=== PATIENT | female | born 1965 | race Caucasian/White ===

== ENCOUNTER 2019-06-24 08:54 | Outpatient (CLI) | payer OTHER, BC, SELFPAY ==
[2019-06-24 09:36] LABS: Alanine Aminotransferase 79 U/L (4-35); Albumin Level 4.4 g/dL (3.5-5.1); Alkaline Phosphatase 68 U/L (38-126); Aspartate Amino Transferase 48 U/L (14-36); Bilirubin,Total 0.5 mg/dL (0.2-1.3); Blood Urea Nitrogen 19 mg/dL (7-17); Calcium 9.7 mg/dL (8.4-10.2); Carbon Dioxide 31 mmol/L (22-30); Chloride 98 mmol/L (98-107); Cholesterol 104 mg/dL (0-200); Estimated Glomerular Filt Rate > 60; Glucose 105 mg/dL (65-105); HDL Direct 32 mg/dL; Potassium 4.1 mmol/L (3.4-5.0); Sodium 141 mmol/L (137-145); Triglycerides 75 mg/dL (<150)
[2019-06-24 09:47] LABS: LDL Cholesterol Direct 62 mg/dL
[2019-06-24 10:00] LABS: Creatinine Urine 90.9 mg/dL
[2019-06-24 10:04] LABS: MALB Creatinine Ratio 22.7 mg/g (0-30); Microalbumin Urine Random 20.6 mg/L (0-16.7)
== END 2019-06-24 08:55 | disposition home or self-care (01) ==
PROVIDERS: PCP Family Medicine; Visit Provider Nurse Practitioner Family
DX: E78.2 Mixed hyperlipidemia (principal); R74.8 Abnormal levels of other serum enzymes; E11.9 Type 2 diabetes mellitus without complications; Z13.29 Encounter for screening for other suspected endocrine disorder
CPT/HCPCS: 36415; 80053; 80061; 82043; 84443

== ENCOUNTER 2019-06-24 14:54 | Outpatient (CLI) | payer OTHER, BC, SELFPAY ==
--- NOTE | 2019-06-24 14:57 | ECG_ITS ---
Measurements Intervals [place] Rate: 69 P: 47 VA: 159 QRS: -36 QRSD: 102 T: 18 QT: 362 QTc: 390 Interpretive Statements SINUS RHYTHM LEFT AXIS DEVIATION CANNOT RULE OUT SEPTAL INFARCT, AGE INDETERMINATE BORDERLINE T WAVE ABNORMALITY- ANTERIOR LEADS BASELINE ARTIFACT- I, II, III, AVR, AVL, AVF ABNORMAL ECG Electronically Signed On 06-24-2019 15:32:34 [employer]CHIT[employer] by Boni Marquez D.O.
== END 2019-06-24 14:55 | disposition home or self-care (01) ==
LOC: ANHSURGERY 14:57
PROVIDERS: PCP Family Medicine; Visit Provider Orthopaedic Surgery
DX: I10 Essential (primary) hypertension (principal); E11.9 Type 2 diabetes mellitus without complications
CPT/HCPCS: 93005

== ENCOUNTER 2019-07-03 02:39 | Day surgery (SDC) | payer OTHER, BC, SELFPAY ==
[2019-06-23 09:23] VITALS: BMI 28.4
[2019-07-03] VITALS (7 sets, daily range): BP systolic 115–147; BP diastolic 67–97; PULSE 61–73; RESP 14–19; TEMP 36.2–36.4; O2SAT 95–100; BMI 27.8
--- NOTE | 2019-07-03 06:28 | WPDANESEPPF ---
Anes - Initial Pre Proc Eval Procedure: Operation Date: 07/03/19 07:30 Proposed Procedures p Left Arthroscopic Partial Medial Meniscectomy - Antonino Williamson MD Date/Time: 07/03/19 06:28 Surgeon: Antonino Williamson MD Pre Op Diagnosis: Left medial meniscus tear Patient Data Age: 54 Gender: F Height: 5 ft 10 in Weight: 90 kg Allergies Allergy/AdvReac Type Severity Reaction Status Date / Time No Known Allergies Allergy Unverified 06/23/19 09:15 Home Medications Medication Instructions Recorded Confirmed Type empagliflozin 5 mg-metformin 1,000 1 tablet PO BID #60 tablet 04/13/19 06/23/19 Rx mg tablet carvedilol 12.5 mg tablet 12.5 mg PO Q12H 04/16/19 06/23/19 History cyclobenzaprine 10 mg tablet 10 mg PO TID 04/16/19 06/23/19 History cyclobenzaprine 5 mg tablet 5 mg PO TID PRN #30 tablet 04/16/19 06/23/19 Rx flash glucose sensor #1 each 04/16/19 06/23/19 History gabapentin 600 mg tablet 600 mg PO DAILY 04/16/19 06/23/19 History hydrochlorothiazide 25 mg tablet 25 mg PO DAILY 04/16/19 06/23/19 History atorvastatin 10 mg tablet 10 mg PO DAILY #90 tablet 05/04/19 06/23/19 Rx omeprazole 40 mg capsule,delayed 40 mg PO DAILY #90 cap 05/04/19 06/23/19 Rx release mmsh-eylhuv-nmjnnora-D3-C-Mn 1 cap PO DAILY 06/23/19 06/23/19 History pxipysjqviya-zkn-bzlf-FA-vit K 1 tablet PO DAILY 06/23/19 06/23/19 History [Adults Multivitamin] omega-3 fatty acids [Fish Oil 1,000 mg PO DAILY 06/23/19 06/23/19 History Concentrate] Patient hx anesthesia problems: none Family hx anesthesia problems: none PMFSH Past Medical History Medical History Cervicalgia Elevated liver enzymes Liver disease Low vitamin D level Mixed hyperlipidemia Tear of medial meniscus of right knee Type 2 diabetes mellitus with hyperglycemia Surgical History Surgical History History of cervical discectomy History of hysterectomy History of tubal ligation History of umbilical hernia repair Family History Family History Grandparent Family history of malignant neoplasm Family history of heart disease in male family member before age 55 Diabetes mellitus Social History Social History Smoking status: Never smoker Alcohol intake: never Anes - Eval Final PreProcedure Day of Procedure 07/03/19 06:28 Patient weight: overweight Heart: regular rate and rhythm Lungs: clear to auscultation Airway: Mallampati scale class II, special considerations poor extension and other (partials) Neurological: alert and oriented Last oral intake: >/= 8 hours ASA classification: III Emergent: no Anesthetic plan: proceed Anesthesia type and monitoring: general LMA and standard monitoring Informed Consent: The patient's anesthetic plan and its attendant risks and benefits were discussed with the patient/family/POA. Questions were solicited and answers provided to the satisfaction of the patient/family/POA.
[2019-07-03] MEDS: LACTATED RINGERS 1,000 ML 30 ML IV CONT (07:00)
[2019-07-03 07:07] LABS: Glucose Point of Care 107 (65-105)
--- NOTE | 2019-07-03 07:18 | PM.HPGS ---
History of Present Illness History of Present Illness Consent: Risks, benefits, and alternatives have been discussed and questions answered. Patient agrees to proceed with procedure. Chief complaint: Left medial meniscus tear Narrative: Hodan Mg is a 54 year old female who complains of persistent medial joint side pain. Worse with activities. Worse with twisting. Feels an intermittent catching sensation. Also pain at night. Minimal benefit from the previous cortisone injection. No significant benefit from physical therapy. Examination Antalgic gait. Mild effusion. Exquisite medial joint line tenderness. Range of motion 0 to 135?. Pain with hyperflexion. Octavia's test positive. No medial or lateral instability. Extensor mechanism intact. Skin without rash or lesion. Calf nontender. Straight leg raise negative. Hip examination benign. [facility] Past Medical History Medical History Cervicalgia Elevated liver enzymes Liver disease Low vitamin D level Mixed hyperlipidemia Tear of medial meniscus of right knee Type 2 diabetes mellitus with hyperglycemia Surgical History Surgical History History of cervical discectomy History of hysterectomy History of tubal ligation History of umbilical hernia repair Family History Family History Grandparent Family history of malignant neoplasm Family history of heart disease in male family member before age 55 Diabetes mellitus Social History Social History Smoking status: Never smoker Alcohol intake: never Meds Home Medications and Allergies Home Medications Medication Instructions Recorded Confirmed Type empagliflozin 5 mg-metformin 1,000 1 tablet PO BID #60 tablet 04/13/19 06/23/19 Rx mg tablet carvedilol 12.5 mg tablet 12.5 mg PO Q12H 04/16/19 06/23/19 History cyclobenzaprine 10 mg tablet 10 mg PO TID 04/16/19 06/23/19 History cyclobenzaprine 5 mg tablet 5 mg PO TID PRN #30 tablet 04/16/19 06/23/19 Rx flash glucose sensor #1 each 04/16/19 06/23/19 History gabapentin 600 mg tablet 600 mg PO DAILY 04/16/19 06/23/19 History hydrochlorothiazide 25 mg tablet 25 mg PO DAILY 04/16/19 06/23/19 History atorvastatin 10 mg tablet 10 mg PO DAILY #90 tablet 05/04/19 06/23/19 Rx omeprazole 40 mg capsule,delayed 40 mg PO DAILY #90 cap 05/04/19 06/23/19 Rx release bjre-soyhen-dqbbmcka-D3-C-Mn 1 cap PO DAILY 06/23/19 06/23/19 History wvwctommdwno-qfm-inix-FA-vit K 1 tablet PO DAILY 06/23/19 06/23/19 History [Adults Multivitamin] omega-3 fatty acids [Fish Oil 1,000 mg PO DAILY 06/23/19 06/23/19 History Concentrate] Allergies Allergy/AdvReac Type Severity Reaction Status Date / Time No Known Allergies Allergy Unverified 06/23/19 09:15 Vital Signs Vital Signs - 24 hr 07/03/19 06:30 Temperature 36.4 C Pulse Rate 62 Respiratory Rate 19 Blood Pressure 135/90 Pulse Oximetry 100 Assessment and Plan Assessment and plan (1) Tear of medial meniscus of right knee: Qualifiers: Tear current or old: current Encounter type: initial encounter Meniscus tear of knee type: complex Qualified Code(s): S83.231A - Complex tear of medial meniscus, current injury, right knee, initial encounter Code(s): S83.241A - Other tear of medial meniscus, current injury, right knee, initial encounter Status: Acute Assessment and Plan: Proceed with arthroscopic partial medial meniscectomy. We discussed the risks, benefits, and alternatives to surgery.
[2019-07-03] MEDS: ceFAZolin 2 GM/D5W 50 ML 2 GM/50 ML BAG IVPB (07:27)
[2019-07-03] MEDS: BUPIVACAINE/EPINEPHRINE 0.5% 30 ML VIAL INFILTRATE (07:45)
[2019-07-03] MEDS: KETOROLAC 30 MG/ML VIAL (*BKC) IV PUSH (07:53)
--- NOTE | 2019-07-03 08:08 | PM.PROC ---
Procedure Note - Detailed Date of procedure: 07/03/19 Pre-op diagnosis: Left medial meniscus tear Left knee medial meniscus tear. Post-op diagnosis: same Procedure performed: Arthroscopic partial medial meniscectomy. Description of procedure: Complex posterior horn tear. 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 Patella grade I and trochlea grade 2. Anesthesia: GETA Surgeon: Antonino Williamson MD Estimated blood loss (mL): 5 Complications: None Condition: stable Disposition: PACU Findings: Brief History: The patient complained of knee pain, swelling and mechanical symptoms despite conservative treatment. MRI confirmed the presence of a meniscus tear. Procedure Details: The patient was identified and the surgical site confirmed and signed in the preoperative holding area. Antibiotics were started per protocol. She was brought to the operative room and transferred to the OR table. A general anesthetic was administered. Supine position with the operative lower extremity position in the leg serrano after placement of a well padded tourniquet. The leg support was lowered and the contralateral limb was supported with a soft bolster. The knee was prepped and draped in the usual sterile fashion. A time-out was performed. The portal sites were marked and infiltrated with 0.5% Marcaine 20 mL. The limb was exsanguinated and the tourniquet inflated to 300 mL Hg. Standard inferolateral and inferomedial portals were established. Inflow was obtained with the saline pump. The camera was introduced. Diagnostic inspection of the joint was accomplished. The meniscus was debrided with the arthroscopic shaver and punches until stable. The arthroscopic instruments were removed. The tourniquet released and wounds closed with subcutaneous 3-0 Monocryl absorbable suture. Steri strips and a sterile dressing were applied. A light elastic wrap was placed. The patient was extubated and brought to the recovery room in stable condition.
[2019-07-03 08:13] LABS: Glucose Point of Care 114 (65-105)
== END 2019-07-03 09:28 | disposition home or self-care (01) ==
PROVIDERS: PCP Family Medicine; Visit Provider Orthopaedic Surgery
PROC: (CPT 29870; principal; 2019-07-03 07:30)
DX: M23.322 Other meniscus derangements, posterior horn of medial meniscus, left knee (principal); M94.262 Chondromalacia, left knee; E11.9 Type 2 diabetes mellitus without complications; E78.2 Mixed hyperlipidemia; E55.9 Vitamin D deficiency, unspecified; K76.9 Liver disease, unspecified; Z79.84 Long term (current) use of oral hypoglycemic drugs
CPT/HCPCS: 29881; A9270; J0690; J1100; J1885; J2250; J2405; J2704; J3010; J7120

== ENCOUNTER 2019-08-27 14:00 | Outpatient (RCR) | payer OTHER, BC, SELFPAY ==
--- NOTE | 2019-07-08 16:16 | PTOPEVAL ---
PHYSICAL THERAPY EVALUATION AND PLAN OF CARE Thank you for referring this patient to [facility]. Shell will participate in physical therapy 2x/week for 4 weeks. Please review, sign, date and return this plan of care ISIAH. I agree with and certify that the following plan of care is medically necessary. Referring Physician Date Attending Provider: Antonino Williamson MD Evaluation Outpatient Past Medical History Neurological History Hx Neurological Disorders No Significant History Cardiovascular History Hx Hypercholesterolemia Yes Hx Hypertension Yes Respiratory History Hx Respiratory Disorders No Significant History Gastrointestinal History Hx Hernia Yes: 2008 UMBILICAL REPAIR Genitourinary History Hx Genitourinary Disorders No Significant History Musculoskeletal History Hx Spinal Surgery Yes: C4-C6 CERVICAL DISCECTOMY AND FUSION Hx Other Musculoskeletal Disorders Yes: LEFT MENISCAL TEAR Hematological History Hx Hematological Disorders No Significant History Endocrine History Hx Diabetes Yes HEENT History Hx HEENT Disorders No Significant History Integumentary History Hx Skin Disorders No Significant History Reproductive History Hx Hysterectomy Yes Hx Tubal Ligation Yes Psychosocial History Hx Psychiatric Disorders No Significant History Pain History Has Past Pain Affected Your Daily Life Yes: NECK PAIN ON OCCASION Anesthesia History Hx Anesthesia Reactions No Significant History Evaluation Information Diagnosis left posterior horn meniscal tear - menisectomy Onset 07/03/2019 Subjective Information Patient is here 6 days s/p Query Text:As Reported By Patient/ left menisectomy of posterior Family horn. She is using crutches as needed. She did go to the grocery store yesterday and there was swelling in the knee that resolved over night. She reports difficulty bending the knee and some pain during full weight bearing. Self Report Pain Assessment Right Knee(s) Reported Pain Level 4 Pain Description Aching,Heavy Pain Frequency Acute,Intermittent Other Pain Description Just does feel right Current Pain Intensity 4 Lowest Pain Intensity 0 Greatest Pain Intensity 6 Pain Aggravating Factors Walking,Weight Bearing/ Standing Interventions Used By Clinicians Exercise,Joint Mobilization Knee Range of Motion Left Knee Flexion Range of Motion - Active 92
--- NOTE | 2019-08-03 07:56 | PCPTNOTE ---
Patient called & cancelled scheduled appointment this date due to no transportation.
--- NOTE | 2019-08-06 09:48 | PTOPEVAL ---
PHYSICAL THERAPY PLAN OF CARE UPDATE AND PROGRESS REPORT Thank you for referring this patient to [facility]. I recommend Hodan continue physical therapy 2x/week for 3-4 weeks to progress quadriceps strengthening and knee flexion. Please review, sign, date and return this plan of care ISIAH. I agree with and certify that the following plan of care is medically necessary. Referring Physician Date Attending Provider: Antonino Williamosn MD Progress Diagnosis left posterior horn meniscal tear - menisectomy Onset 07/03/2019 Subjective Information Knee has been ok. Going Query Text:As Reported By Patient/ down stairs still feels like Family the knee won't hold and ROM continues to be limited. Pain Assessment Timing of Pain Assessment Timing of Pain Assessment Assessment Self Report Self Report Pain Level 0 Pain Score Pain Score 0: Self Report Additional Pain Score Comments no real pain, just that tightness and resistance Lower Extremity Range of Motion Knee Range of Motion Left Knee Flexion Range of Motion - Active 111 Knee Extension Range of Motion - Active 0 Query Text: Lower Extremity Muscle Strength Testing Knee Strength Left Knee Flexion Strength 4+ Good + Knee Extension Strength 3+ Fair + Knee Strength Comments pain at medial joint line to MMT Palpation scar tissue noted under medial incision site; tender to palpation medial joint line Gait Assessment Gait Pattern Antalgic Gait Other Gait Observations very mild antalgia with limited dorsiflexion Stair Climbing Assessment Stair Climbing Assistive Devices Railings Weight Bearing Status - Left As Tolerated Weight Bearing Status - Right Full Maintains Weight Bearing Status Yes Number of Steps Climbed (Steps) 4 Number of Repetitions (Repetitions) 3 Technique Alternating Steps Stair Climbing Direction Both Up and Down Stair Climbing Ability Independent Stair Climbing Comments difficulty descending PT Clinical Summary At this time, Hodan is progressing well with her physical therapy to meet her functional goals. She does continue to demonstrate decreased quadriceps strength that limits functional tasks including squats/sit<>stand and descending stairs. She also presents wi
--- NOTE | 2019-08-27 14:53 | PTOPEVAL ---
PHYSICAL THERAPY DISCHARGE REPORT Thank you for referring Hodan Mg to [facility]. Please review, sign, date and return this plan of care ISIAH. I agree with and certify that the following plan of care is medically necessary. Referring Physician Date Attending Provider: Antonino Williamson MD Discharge Diagnosis left posterior horn meniscal tear - menisectomy Onset 07/03/2019 Subjective Information Reports she is feeling much Query Text:As Reported By Patient/ more confident in her knee. Family She has gone to work for 8 days and every day became a little easier and felt stronger. She negotiated several flights of stairs at work with minimal pain symptoms. Hodan reports she has everything she needs at home to continue exercising. Pain Assessment Timing of Pain Assessment Timing of Pain Assessment Pre-Treatment Self Report Self Report Pain Level 0 Pain Score Pain Score 0: Self Report Lower Extremity Range of Motion Knee Range of Motion Left Knee Flexion Range of Motion - Active 131 Knee Extension Range of Motion - Active 0 Query Text: Lower Extremity Muscle Strength Testing Hip Strength Left Hip Flexion Strength 5 Normal Hip Extension Strength 5 Normal Hip Abduction Strength 5 Normal Knee Strength Left Knee Flexion Strength 5 Normal Knee Extension Strength 5 Normal Knee Strength Comments single leg squat to chair: left = 50%, right = 100% -- presented extensive education regarding importance of quadriceps strength for knee health and preventing tendonitis Gait Pattern No Deviations/Normal Stair Climbing Assessment Stair Climbing Assistive Devices None Weight Bearing Status - Left As Tolerated Weight Bearing Status - Right Full Maintains Weight Bearing Status Yes Number of Steps Climbed (Steps) 4 Number of Repetitions (Repetitions) 3 Technique Alternating Steps Stair Climbing Direction Both Up and Down Stair Climbing Ability Independent PT Clinical Summary Hodan has met her functional goals at this time. She demonstrates WFL strength of Left LE and has an HEP in which she is confident to
== END 2019-08-27 16:10 | disposition home or self-care (01) ==
LOC: ANHPT 14:00
PROVIDERS: PCP Family Medicine; Visit Provider Orthopaedic Surgery
DX: Z48.89 Encounter for other specified surgical aftercare (principal)
CPT/HCPCS: 97014; 97110; 97140; 97161; 97530; G0283

== ENCOUNTER 2019-11-19 15:50 | Outpatient (CLI) | payer OTHER, SELFPAY ==
--- NOTE | ~2019-11-19 | XR_ITS ---
XR knee LT min 4V 11/19/2019 16:28 Indication: Left knee pain Procedure: 4 views left knee Comparison: 04/16/2019 Findings: Mild osteoarthritis of the left knee with marginal osteophytes unchanged. No fracture or tr aumatic malalignment. No significant joint effusion. No radiopaque foreign bodies. Impression: 1: Stable mild tricompartment osteoarthritis of the left knee. Reviewed, dictated and finalized at location A. Impression: 1: Stable mild tricompartment osteoarthritis of the left knee.
== END 2019-11-19 15:51 | disposition home or self-care (01) ==
LOC: ANHIMG 15:58
PROVIDERS: PCP Family Medicine; Visit Provider Orthopaedic Surgery
DX: Z48.89 Encounter for other specified surgical aftercare (principal); M17.12 Unilateral primary osteoarthritis, left knee
CPT/HCPCS: 73564

== ENCOUNTER 2020-02-02 14:25 | Outpatient (CLI) | payer OTHER, SELFPAY ==
[2020-02-02 15:09] LABS: Anion Gap 9 mmol/L (8-16); Blood Urea Nitrogen 19 mg/dL (7-17); Calcium 10.1 mg/dL (8.4-10.2); Carbon Dioxide 29 mmol/L (22-30); Chloride 100 mmol/L (98-107); Cholesterol 110 mg/dL (0-200); Estimated Glomerular Filt Rate 52; Glucose 143 mg/dL (65-105); HDL Direct 33 mg/dL; Potassium 4.1 mmol/L (3.4-5.0); Sodium 138 mmol/L (137-145); Triglycerides 221 mg/dL (<150)
[2020-02-02 15:20] LABS: LDL Cholesterol Direct 54 mg/dL
[2020-02-02 16:53] LABS: Creatinine Urine 79.4 mg/dL
[2020-02-02 17:13] LABS: MALB Creatinine Ratio < 7.6 mg/g (0-30); Microalbumin Urine Random < 6.0 mg/L (0-16.7)
== END 2020-02-02 14:26 | disposition home or self-care (01) ==
LOC: ANHLAB 14:28
PROVIDERS: PCP Family Medicine; Visit Provider Nurse Practitioner Family
DX: E11.9 Type 2 diabetes mellitus without complications (principal)
CPT/HCPCS: 36415; 80048; 80061; 82043; 84443

== ENCOUNTER 2020-06-03 14:24 | Outpatient (CLI) | payer OTHER, SELFPAY ==
--- NOTE | ~2020-06-03 | XR_ITS ---
EXAMINATION: XR chest 2V DATE: 06/03/2020 14:40 INDICATION: Cough. TECHNIQUE: Frontal and lateral views of the chest were obtained. COMPARISON: Chest 2 views 11/22/2015 FINDINGS: The chest demonstrates clear lungs without pneumonia, pleural effusion, or pneumothorax. Th e heart size is normal. There are changes of anterior fusion procedure in cervical spine. IMPRESSION: 1. No acute cardiopulmonary disease. Reviewed, dictated and finalized at location B. [employer] WORK[employer]
== END 2020-06-03 14:25 | disposition home or self-care (01) ==
PROVIDERS: Family Provider Family Medicine; PCP Family Medicine; Visit Provider Nurse Practitioner Family
DX: R05 Cough (principal)
CPT/HCPCS: 71046

== ENCOUNTER 2020-12-05 14:55 | Emergency (ER) | payer OTHER, SELFPAY ==
--- NOTE | ~2020-12-05 | XR_ITS ---
XR knee RT min 4V 12/05/2020 15:31 Indication: Right knee pain Procedure: 4 views right knee Comparison: 04/16/2019 Findings: No fracture, subluxation or dislocation. No significant joint effusion. There is mild osteo arthritis. No foreign bodies. No focal soft tissue abnormality. Impression: 1: No acute fracture. Reviewed, dictated and finalized at location A. Impression: 1: No acute fracture.
[2020-12-05 15:10] VITALS: BP 130/71; PULSE 78; RESP 18; TEMP 37.6; O2SAT 97
--- NOTE | 2020-12-05 15:13 | ED.LOWEXIN ---
HPI - Extremity Injury (Lower) General Chief Complaint: Extremity Injury, Lower Stated Complaint: Right Knee Pain Time Seen by Provider: 12/05/20 15:13 Source: patient and RN notes reviewed Mode of arrival: ambulatory Limitations: no limitations History of Present Illness HPI Narrative: 55-year-old female presents to the [facility] with right knee pain since yesterday. Patient reports that she dropped a box on her knee a day prior to arrival. Has been using ice and ibuprofen with minimal relief. Patient reports that she has been walking at work and the pain gets worse. Related Data Home Medications Medication Instructions Recorded Confirmed Adults Multivitamin 1 tablet PO DAILY 06/23/19 12/06/20 Allergies Allergy/AdvReac Type Severity Reaction Status Date / Time No Known Allergies Allergy Verified 12/05/20 15:17 Review of Systems Review of Systems: All systems reviewed & are unremarkable except as noted in HPI and below Constitutional: Constitutional: Reports no additional constitutional complaints Eyes: Eyes: Reports no additional eye complaints ENT: Reports system reviewed and no additional complaints, except as documented Cardiovascular: Cardiovascular: Reports no additional cardiovascular complaints and Denies chest pain Respiratory: Respiratory: Reports no additional respiratory complaints Musculoskeletal: Musculoskeletal: Reports as per HPI and Reports arthralgias (Right knee) Integumentary/Breasts: Skin/Breast: Reports system reviewed and no additional complaints, except as docu and Denies rash Neurologic: Reports system reviewed and no additional complaints, except as documented, Denies dizziness, Denies headache(s), Denies focal weakness, Denies numbness and Denies weakness Psychiatric: Psychiatric: Reports no additional psychiatric complaints Allergic/Immunologic: Allergic/Immunologic: Reports no additional allergic/immunologic complaints [facility] Past Medical History Medical History BMI 27.0-27.9,adult Cervicalgia Elevated liver enzymes Liver disease Low vitamin D level Mixed hyperlipidemia Tear of medial meniscus of right knee Type 2 diabetes mellitus with hyperglycemia Surgical History Surgical History History of cervical discectomy History of hysterectomy History of tubal ligation History of umbilical hernia repair Family History Family History Grandparent Family history of malignant neoplasm Family history of heart disease in male family member before age 55 Diabetes mellitus Father No problems noted. Mother Heart disease Diabetes mellitus COVID-19 Sibling No problems noted. Social History Social History Smoking status: Never smoker Alcohol intake: current Substance use: never Substance use type: does not use Additional occupation/education comments: PT Gender identity (if verbalized by the patient): Female Comments At the time of my signature, I reviewed and agree with the nursing past medical, surgical, social, and family history. There is no relevant family history pertinent to the patient complaint. Exam Const: General: healthy appearing, no acute distress and alert Nutritional Appearance: well nourished Orientation/consciousness: patient oriented x3 Limitations: no limitations HENMT: Head: normal to inspection Neck: Neck: normal visual inspection Chest: Chest palpation & inspection: normal inspection of the chest Resp: Effort & Inspection: normal respiratory effort Auscultation: clear to auscultation bilaterally Cardio: Rate: regular rate Rhythm: regular rhythm Back/Spine/Pelvis: Back: no CVA tenderness Skin: General skin exam: normal color Rashes: no rashes Wounds: no wounds Neur
== END 2020-12-05 15:52 | disposition home or self-care (01) ==
PROVIDERS: Emergency Provider Nurse Practitioner; PCP Family Medicine
DX: S83.91XA Sprain of unspecified site of right knee, initial encounter (principal); W20.8XXA Other cause of strike by thrown, projected or falling object, initial encounter; E78.2 Mixed hyperlipidemia; E11.9 Type 2 diabetes mellitus without complications; K76.9 Liver disease, unspecified
CPT/HCPCS: 73564; 99213; G0463

== ENCOUNTER → 2020-12-14 07:51 | Outpatient (CLI) | payer OTHER, SELFPAY ==
--- NOTE | ~2020-12-14 | MR_ITS ---
EXAMINATION: MR knee RT wo con DATE: 12/14/2020 08:43 INDICATION: Generalized right knee pain, swelling, limited range of motion and weakness post twisting injury one week prior. TECHNIQUE: Magnetic resonance imaging (MRI) of the right knee was performed without intravenous contr ast. Sequences included coronal PD-weighted FSE, coronal PD-weighted FS FSE, sagittal T2-weighted FS E, sagittal PD-weighted FS FSE and axial PD weighted fat saturated FSE. COMPARISON: None. FINDINGS: Medial compartment: Medial meniscus is normal. Shallow chondral fissuring involving less than 50% the cartilage thickness along the anterior weightbearing medial femoral condyle. Remaining cartilage appears normal. Lateral compartment: Lateral meniscus is normal. Deeper chondral fissuring along the anterior weightbearing lateral femora l condyle with small region of subtle underlying cortical irregularity but without subcortical edema. Remaining cartilage appears normal. Patellofemoral compartment: Deep chondral ulceration at the trochlea centered about the inferior half of the trochlear groove wit h underlying small subchondral osteophytes. Diffuse partial thickness cartilage loss the patella with regions of deep or full/near full-thickness chondral ulceration and associated underlying mild subar ticular cystic change at the cephalad aspects of the medial and lateral patellar facets. Ligaments and tendons: At least partial tear of the posterolateral bundle of the anterior cruciate ligament. The anteromedia l bundle remains normal.. The posterior cruciate ligament is normal. The medial collateral ligament a nd fibular collateral ligament complex are normal. Proximal patellar tendinopathy. The quadriceps ten don is normal. The visualized medial and lateral hamstring tendons as well as the iliotibial band are normal. Fluid: Moderate-sized right knee joint effusion. No loose osteochondral bodies identified. Small Oliveira's cys t with trace amount of fluid. Osseous/other: Small bone islands in the distal femur. No fracture or pathologic marrow replacing process. IMPRESSION: 1. At least partial tear of the posterolateral bundle of the anterior cruciate ligament with intact a nteromedial bundle. 2. Mild tricompartmental osteoarthritis with regions of high-grade chondromalacia most prominent in t he patellofemoral compartment with smaller regions of moderate to high-grade chondromalacia along the weightbearing medial lateral femoral condyles. 3. Moderate-sized right knee joint effusion. Reviewed, dictated and finalized at location A. IMPRESSION: 1. At least partial tear of the posterolateral bundle of the anterior cruciate ligament with intact anteromedial bundle. 2. Mild tricompartmental osteoarthritis with regions of high-grade chondromalac ia most prominent in the patellofemoral compartment with smaller regions of mod erate to high-grade chondromalacia along the weightbearing medial lateral femor al condyles. 3. Moderate-sized right knee joint effusion.
== END ==
PROVIDERS: PCP Family Medicine; Visit Provider Nurse Practitioner Family
DX: S89.91XA Unspecified injury of right lower leg, initial encounter (principal); M17.11 Unilateral primary osteoarthritis, right knee; M22.41 Chondromalacia patellae, right knee; M25.461 Effusion, right knee
CPT/HCPCS: 73721

== ENCOUNTER 2021-02-23 07:30 | Outpatient (RCR) | payer OTHER, SELFPAY ==
--- NOTE | 2021-01-05 16:31 | PTOPEVAL ---
PHYSICAL THERAPY EVALUATION AND PLAN OF CARE Thank you for referring Hodan Mg to [facility] [place].? The patient is scheduled to be seen for therapy? 2x/week for 4 weeks. Please review, sign, date and return this plan of care ISIAH. I agree with and certify that the following plan of care is medically necessary. Referring Physician Date Attending Provider: Antonino Williamson MD Evaluation Diagnosis right partial ACL tear Onset December 04, 2020 Subjective Information heard a pop in the right knee, Query Text:As Reported By Patient/ was able to walk with a lot Family of pain and swelling came up right away. Feels unstable a lot of the time. Does not take NSAIDs or pain medications because of liver disease. Ultimately feels like the right knee is unstable. When she is walking, it will feel unstable and she will falter and the knee will pop again. An ACL brace is ordered and coming just to help with stability. Self Report Pain Assessment Right Knee(s) Reported Pain Level 3 Pain Score Pain Score 3: Self Report Interventions Used Interventions Used By Clinicians Exercise Pain Relief Interventions Used By Inactivity/Rest Patient Lower Extremity Range of Motion Knee Range of Motion Left Knee Flexion Range of Motion - Active 122 Knee Extension Range of Motion - Active 0 Query Text: Right Knee Flexion Range of Motion - Active 104 Knee Extension Range of Motion - Active -7 Query Text: Lower Extremity Muscle Strength Testing Knee Strength Right Knee Flexion Strength 4 Good Knee Extension Strength 4 Good Knee Strength Comments fair quadriceps contraction; lacking terminal end range Palpation Assessment Palpation Palpation mild tension noted to posterior right knee; increased tension noted to quadriceps Gait Assessment Gait Pattern Assessment Gait Pattern Antalgic Gait Other Gait Observations very mild antalgia, decreased heel strike on right; decreased terminal knee extension in stance phase; occasional episodes of instability to stop her and cause pain and sometimes pop General
--- NOTE | 2021-01-31 09:12 | PTOPEVAL ---
PHYSICAL THERAPY PROGRESS REPORT AND PLAN OF CARE UPDATE Thank you for referring Hodan Mg to [facility].? The patient is scheduled to be seen for therapy? 2x/week for 3 weeks. Please review, sign, date and return this plan of care ISIAH. I agree with and certify that the following plan of care is medically necessary. Referring Physician Date Attending Provider: Antonino Williamson MD Progress Diagnosis right partial ACL tear Onset December 04, 2020 Subjective Information States she is doing ok. States Query Text:As Reported By Patient/ she was trying to take some Family weight off of the leg and let it rest and states that now that the swelling is down she feels alot better and more able to bend the knee. Self Report Pain Assessment Right Knee(s) Reported Pain Level 2 Pain Description Aching,Tightness Pain Frequency Continuous Pain Score Pain Score 2: Self Report Interventions Used Interventions Used By Clinicians Exercise Lower Extremity Range of Motion Knee Range of Motion Left Knee Flexion Range of Motion - Active 122 Knee Extension Range of Motion - Active 0 Query Text: Right Knee Flexion Range of Motion - Active 114 Knee Extension Range of Motion - Active 0 Query Text: Lower Extremity Muscle Strength Testing Hip Strength Right Hip Flexion Strength 4+ Good + Hip Extension Strength 4 Good Hip Abduction Strength 5 Normal Hip Strength Comments single leg sit<>stand: right = unable to perform from standard height; left = able to perfrom from standard height with poor glute med control Knee Strength Right Knee Flexion Strength 4+ Good + Knee Extension Strength 4+ Good + Gait Assessment Gait Pattern Assessment Gait Pattern Antalgic Gait Other Gait Observations very mild antalgia, decreased heel strike on right; decreased terminal knee extension in stance phase; : episodes of instability have decreased, continues to have mild antalgia with decreased terminal knee extension Stair Climbing Assessment Stair Climbing Assessment Stair Climbing Assistive Devices Railings Weight Bearing Status - Left Full Weight Bearing Status - Right As Tolerated Maintains Weight Bearing Status
--- NOTE | 2021-02-02 09:53 | PCPTNOTE ---
On 02/02/21, the student, REAL Mejias, provided care and completed [facility] documentation on this patient. I have reviewed the student's documentation and agree with the findings.
--- NOTE | 2021-02-09 09:55 | PCPTNOTE ---
Patient called & cancelled scheduled appointment this date due to not feeling well.
--- NOTE | 2021-02-23 08:05 | PTOPEVAL ---
PHYSICAL THERAPY PROGRESS REPORT Thank you for referring Hodan Mg to [facility].? Going to hold chart for 30 days. Please review, sign, date and return this plan of care ISIAH. I agree with and certify that the following plan of care is medically necessary. Referring Physician Date Attending Provider: Antonino Williamson MD Progress Diagnosis right partial ACL tear Onset December 04, 2020 Subjective Information Doing really well at this time Query Text:As Reported By Patient/ . Swelling today is very Family minimal compared to previous visits. She walked her dog around the park for a mile without consequence. One of her biggest complaints is tension and pain in the back of the knee - today it is better as she has been massaging it and putting heat on it. gave her a cortisone injection 3 days ago which very likely helping with the swelling. Pain Score Pain Score 0: Self Report Lower Extremity Range of Motion Knee Range of Motion Left Knee Flexion Range of Motion - Active 122 Knee Extension Range of Motion - Active 0 Query Text: Right Knee Flexion Range of Motion - Active 124 Knee Extension Range of Motion - Active 0 Query Text: Lower Extremity Muscle Strength Testing Hip Strength Right Hip Flexion Strength 5 Normal Hip Extension Strength 4+ Good + Hip Abduction Strength 5 Normal Hip Strength Comments single leg sit<>stand: right and left both successful from standard height; functional squat within 40deg from parallel Knee Strength Right Knee Flexion Strength 5 Normal Knee Extension Strength 5 Normal Palpation Assessment Palpation Palpation mild tension noted to posterior right knee; increased tension noted to quadriceps Stair Climbing Assessment Stair Climbing Assessment Stair Climbing Assistive Devices Railings Weight Bearing Status - Left Full Weight Bearing Status - Right As Tolerated Maintains Weight Bearing Status Yes Technique Alternating Steps Stair Climbing Direction Both Up and Down Stair Climbing Ability Independent Stair Climbing Comments eccentric control improving -
--- NOTE | 2021-03-21 17:52 | PCPTNOTE ---
PHYSICAL THERAPY DISCHARGE NOTE Attending Provider: Antonino Williamson MD Patient:Hodan Mg Date of :1965 Patient has not returned for any further treatments since 02/23/2021, therefore (he/she) will be discharged at this time. Her chart was held for a month and she did not call to report any questions or concerns. Thank you for referring this patient to [facility]. Please review, sign, date and return this discharge summary ISIAH. I have been updated about the patient's current status and I agree with discharge from the above service at this time. Referring Physician Date
== END 2021-03-22 16:50 | disposition home or self-care (01) ==
LOC: ANHPT 07:30
PROVIDERS: PCP Family Medicine; Visit Provider Orthopaedic Surgery
DX: S83.519D Sprain of anterior cruciate ligament of unspecified knee, subsequent encounter (principal)
CPT/HCPCS: 97110; 97140; 97162

== ENCOUNTER 2021-05-16 08:35 | Outpatient (CLI) | payer OTHER, SELFPAY ==
--- NOTE | ~2021-05-16 | MR_ITS ---
EXAMINATION: MR cervical spine wo con DATE: 05/16/2021 10:09 INDICATION: Cervical disc displacement. Cervical pain. Headaches. Bilateral arm pain and tingling. TECHNIQUE: Magnetic resonance imaging (MRI) of the cervical spine was performed without intravenous c ontrast. Sequences included sagittal T2-weighted FSE, sagittal T2-weighted FS FSE, sagittal T1-weight ed FSE, axial MERGE and axial T2-weighted FSE. COMPARISON: Cervical spine CT dated 02/09/2015 and MRI dated 01/29/2015 FINDINGS: Bone alignment is normal. C5-C7 anterior spinal fusion with interbody bone graft and magnetic field a rtifact associated with anterior plate and screw fixation.Unfused vertebral body heights are normal. New annular fissure and mild disc height loss at C7-T1. Additional mild disc height loss at T2-T3. Re maining unfused disc heights are normal. Bone marrow signal intensity is normal. Cord signal intensi ty is normal. Cervical soft tissues are unremarkable. The following disc levels are specifically disc ussed: C2-C3: The disc does not extend beyond the endplate margin. There is mild right uncovertebral joint o steoarthritis. There is mild bilateral facet joint osteoarthritis. There is no neural foraminal steno sis. There is no central canal stenosis. C3-C4: Disc is mildly bulging. There is moderate left and mild right uncovertebral joint osteoarthrit is. There is moderate bilateral facet joint osteoarthritis. There is mild bilateral neural foraminal stenosis. There is minimal central canal stenosis. C4-C5: Disc is mildly bulging. There is mild to moderate bilateral uncovertebral joint osteoarthritis . There is mild right and severe left facet joint osteoarthritis. There is mild to moderate bilateral neural foraminal stenosis. There is mild central canal stenosis. C5-C6: Disc space is fused. There is mild to moderate right and moderate left facet joint osteoarthri tis. There is mild bilateral neural foraminal stenosis. There is no central canal stenosis. C6-C7: Disc space is fused. There is mild right and moderate left facet joint osteoarthritis. There i s mild to moderate bilateral neural foraminal stenosis. There is no central canal stenosis. C7-T1: Diffuse disc bulge with annular fissure. There is mild bilateral uncovertebral joint osteoarth ritis. There is mild bilateral facet joint osteoarthritis. There is mild right and mild to moderate l eft neural foraminal stenosis. There is mild central canal stenosis. IMPRESSION: 1. Instrumented C5-C7 anterior spinal fusion with slight progression in moderate cervical spondylosis . Reviewed, dictated and finalized at location B. [employer] IMPRESSION: 1. Instrumented C5-C7 anterior spinal fusion with slight progression in moderat e cervical spondylosis.
[2021-05-16 10:32] LABS: Hematocrit 42.8 % (37.0-47.0); Hemoglobin 14.1 g/dL (12.0-15.0); Mean Corpuscular HGB Conc 32.9 g/dl (32-36); Mean Corpuscular Hemoglobin 29.4 pg (26-34); Mean Corpuscular Volume 89.4 fl (80-100); Mean Platelet Volume 9.2 fl (7.4-10.4); Platelet Count Result 200 k/mm3 (150-375); Red Blood Count 4.79 M/mm3 (4.2-5.4); Red Cell Distribution Width 13.5 % (11.5-14.5); White Blood Count 5.8 K/mm3 (4.5-10.0)
[2021-05-16 10:43] LABS: Alanine Aminotransferase 92 U/L (4-35); Albumin Level 4.6 g/dL (3.5-5.1); Alkaline Phosphatase 76 U/L (38-126); Anion Gap 8 mmol/L (8-16); Aspartate Amino Transferase 66 U/L (14-36); Bilirubin,Total 0.5 mg/dL (0.2-1.3); Blood Urea Nitrogen 16 mg/dL (7-17); Calcium 10.1 mg/dL (8.4-10.2); Carbon Dioxide 29 mmol/L (22-30); Chloride 101 mmol/L (98-107); Cholesterol 96 mg/dL (0-200); Estimated Glomerular Filt Rate > 60; Glucose 100 mg/dL (65-110); HDL Direct 27 mg/dL; Potassium 4.2 mmol/L (3.4-5.0); Sodium 138 mmol/L (137-145); Triglycerides 143 mg/dL (<150)
[2021-05-16 10:52] LABS: Hemoglobin A1C 6.9 % (<5.7)
[2021-05-16 10:54] LABS: LDL Cholesterol Direct 44 mg/dL
[2021-05-16 11:00] LABS: Vitamin D 25 Hydroxy 47.9 ng/mL
[2021-05-16 11:12] LABS: MALB Creatinine Ratio 10.7 mg/g (0-30); Microalbumin Urine Random 13.7 mg/L (0-16.7)
[2021-05-16 11:16] LABS: Hepatitis B Surface Antigen Negative (Negative)
[2021-05-16 11:22] LABS: HAV RESULT Negative (Negative); Hepatitis B Core IgM Result Negative (Negative)
[2021-05-16 11:34] LABS: Hepatitis C Virus Antibody Negative (Negative)
[2021-05-18 04:01] LABS: GGT 38 U/L (3-70)
== END 2021-05-16 08:36 | disposition home or self-care (01) ==
LOC: ANHIMG 08:38
PROVIDERS: PCP Family Medicine; Visit Provider Nurse Practitioner Family
DX: E55.9 Vitamin D deficiency, unspecified (principal); M50.20 Other cervical disc displacement, unspecified cervical region; K76.9 Liver disease, unspecified; E11.65 Type 2 diabetes mellitus with hyperglycemia; Z98.1 Arthrodesis status
CPT/HCPCS: 36415; 72141; 80053; 80061; 80074; 82043; 82306; 82977; 83036; 85027

== ENCOUNTER 2021-07-07 13:45 | Outpatient (CLI) | payer OTHER, SELFPAY ==
--- NOTE | ~2021-07-07 | US_ITS ---
EXAMINATION: US abdomen complete DATE: 07/07/2021 14:39 INDICATION: Fatty change of the liver TECHNIQUE: Multiple grayscale and Doppler ultrasound images of the abdomen were obtained. COMPARISON: None available FINDINGS: The head and body of the pancreas are normal. The pancreatic tail is obscured by bowel gas. The liver demonstrates increased echogenicity, heterogenous echotexture, and decreased through trans mission. No surface nodularity. Normal hepatopetal flow in the main portal vein. The gallbladder is n ormal with no abnormal wall thickening, pericholecystic fluid or stones. The normal common bile duct measures 5 mm. There was no sonographic Thacker sign. The visualized portions of the aorta and inferio r vena cava are normal. The right kidney measures 12.3 x 5.2 x 6.2 cm. The left kidney measures 13.2 x 5.9 x 4.9 cm. The kidn eys demonstrate normal parenchymal echogenicity. There is no hydronephrosis. The spleen is normal in appearance and measures 13.4 cm. IMPRESSION: 1. Diffuse hepatic steatosis. Reviewed, dictated and finalized at location F. BAKER
== END 2021-07-07 13:46 | disposition home or self-care (01) ==
LOC: ANHIMG 13:48
PROVIDERS: PCP Family Medicine; Visit Provider Internal Medicine Gastroenterology
DX: K76.0 Fatty (change of) liver, not elsewhere classified (principal)
CPT/HCPCS: 76700

== ENCOUNTER 2021-10-27 11:36 | Outpatient (CLI) | payer OTHER, SELFPAY ==
[2021-10-27 12:46] LABS: Alanine Aminotransferase 110 U/L (6-35); Albumin Level 4.6 g/dL (3.5-5.1); Alkaline Phosphatase 84 U/L (38-126); Anion Gap 8 mmol/L (8-16); Aspartate Amino Transferase 65 U/L (14-36); Bilirubin,Total 0.6 mg/dL (0.2-1.3); Blood Urea Nitrogen 18 mg/dL (7-17); Calcium 9.5 mg/dL (8.4-10.2); Carbon Dioxide 25 mmol/L (22-30); Chloride 105 mmol/L (98-107); Estimated Glomerular Filt Rate > 60; Glucose 105 mg/dL (65-110); Potassium 4.3 mmol/L (3.4-5.0); Sodium 138 mmol/L (137-145)
[2021-10-27 12:56] LABS: Vitamin D 25 Hydroxy 50.2 ng/mL
== END 2021-10-27 11:37 | disposition home or self-care (01) ==
LOC: ANHLAB 11:39
PROVIDERS: PCP Family Medicine; Visit Provider Nurse Practitioner Family
DX: K76.0 Fatty (change of) liver, not elsewhere classified (principal); R74.8 Abnormal levels of other serum enzymes; R53.83 Other fatigue; E55.9 Vitamin D deficiency, unspecified
CPT/HCPCS: 36415; 80053; 82306; 84443

== ENCOUNTER 2021-10-31 15:33 | Outpatient (CLI) | payer OTHER, SELFPAY ==
--- NOTE | ~2021-10-31 | MR_ITS ---
EXAMINATION: MR shoulder LT wo con DATE: 10/31/2021 16:26 INDICATION: Acute onset left shoulder pain with limited range of motion and loss of strength post fal l one year prior. TECHNIQUE: Magnetic resonance imaging (MRI) of the left shoulder was performed without intravenous co ntrast. Sequences included axial PD-weighted FS FSE, coronal oblique PD-weighted FS FSE, coronal obli que T2-weighted FS FSE, sagittal PD-weighted FS FSE, and sagittal T1-weighted SE. COMPARISON: None. FINDINGS: Coracoacromial arch: The acromion undersurface is minimally curved in morphology (type I-II). There is thickening of the c oracoacromial ligament. Mild acromioclavicular osteoarthritis with small inferiorly directed osteophy jessica at the lateral head of the clavicle which abut and exert minimal mass effect upon the underlying supraspinatus muscle and tendon with effacement of the intervening fat plane.. Rotator cuff: Mild supraspinatus and infraspinatus tendinopathy without discrete tear. Minimal subscapularis tendin opathy also without tear. The teres minor tendon is normal. Normal rotator cuff muscle bulk and signa l. Biceps tendon, glenoid labrum and glenohumeral cartilage: Mild tendinopathy without discrete tear of the intra-articular long head biceps tendon. Anatomic vari ant Frankston complex with absent anterosuperior glenoid labrum and thickened cordlike middle glenohumer al ligament. superior, anterior to posterior tear of the glenoid labrum (SLAP tear) of the 10:30-12:0 0 position of the posterior superior glenoid labrum. Partial-thickness chondral fissuring along the 3 :00 position of the anterior glenoid. Mild partial-thickness cartilage loss with smooth chondral surf gisela along the inferomedial and cephalad aspect of the humeral head. Fluid: Physiologic amount of fluid in the glenohumeral joint and biceps tendon sheath. No loose osteochondr al bodies. No abnormal fluid signal in the subacromial/subdeltoid bursa to suggest bursitis. Bones: Normal marrow signal with no edema, fracture or abnormal marrow replacing process. IMPRESSION: 1. Mild glenohumeral osteoarthritis with partial thickness chondral fissuring at the anterior glenoid . 2. SLAP tear at the posterior superior glenoid labrum. 3. Mild supraspinatus and infraspinatus tendinopathy and minimal subscapularis tendinopathy without d iscrete rotator cuff tear. 4. Mild tendinopathy without discrete tear of the intra-articular long head biceps tendon. 4. Mild acromioclavicular osteoarthritis. Reviewed, dictated and finalized at location B. IMPRESSION: 1. Mild glenohumeral osteoarthritis with partial thickness chondral fissuring a t the anterior glenoid. 2. SLAP tear at the posterior superior glenoid labrum. 3. Mild supraspinatus and infraspinatus tendinopathy and minimal subscapularis tendinopathy without discrete rotator cuff tear. 4. Mild tendinopathy without discrete tear of the intra-articular long head bic eps tendon. 4. Mild acromioclavicular osteoarthritis.
== END 2021-10-31 15:34 | disposition home or self-care (01) ==
PROVIDERS: PCP Family Medicine; Visit Provider Neurological Surgery
DX: M25.512 Pain in left shoulder (principal); M19.012 Primary osteoarthritis, left shoulder; S43.432A Superior glenoid labrum lesion of left shoulder, initial encounter; S46.012A Strain of muscle(s) and tendon(s) of the rotator cuff of left shoulder, initial encounter
CPT/HCPCS: 73221

== ENCOUNTER 2022-03-19 08:09 | Emergency (ER) | payer OTHER, SELFPAY ==
[2022-03-19 08:17] VITALS: BP 134/98; PULSE 83; RESP 16; TEMP 36.8
--- NOTE | 2022-03-19 08:17 | ED.URI ---
HPI - URI/Sore Throat General Chief Complaint: Upper Respiratory Infection Stated Complaint: cough, red spots im mouth, sore throat Time Seen by Provider: 03/19/22 08:20 History of Present Illness HPI Narrative: 56 y/o female with a Hx GERD, DM, cervical surgery x 2 who presents with a c/o sore throat onset yesterday around 1330 while eating lunch. States he had difficulty swallowing during lunch, and last night was spitting out her saliva. She attempted to take a Tylenol for the pain but the pill got stuck in her throat and came back up when she coughed. Reports emesis x 1 after attempting to eat some creamy soup. Reports sinus congestion, minimally productive cough with clear sputum, headache, low-grade temp of 99 for about 4 days, and noticed red spots to the roof of her mouth under dentures last night. Patient states that her granddaughter who lives with her tested positive for strep throat 4 days ago. Denies abd pain, n/v/d, SOB, increased wheezing, CP, palpitations, or otalgia. Endorses she was told she has scar tissue in neck after 2 anterior cervical surgeries. Related Data Home Medications Medication Instructions Recorded Confirmed multivit with minerals-iron 18 1 tablet PO DAILY 06/23/19 02/07/22 mg-folic ac 400 mcg-vit K 25 mcg tablet (Adults Multivitamin) gabapentin 600 mg tablet 600 mg PO DAILY 04/20/21 02/07/22 empagliflozin 5 mg-metformin 1,000 tablet 03/19/22 mg tablet (Synjardy) Allergies Allergy/AdvReac Type Severity Reaction Status Date / Time No Known Allergies Allergy Verified 02/07/22 10:29 Review of Systems Review of Systems: CONSTITUTIONAL: Denies body aches, fever, chills, or sweats. EYES: Denies visual changes, redness, or discharge. ENT: per HPI CARDIOVASCULAR: Denies chest pain, palpitations, or edema. RESPIRATORY: Denies dyspnea. Reports some baseline wheezing d/t her asthma. GASTROINTESTINAL: Denies abdominal pain, nausea, or diarrhea. Reports emesis x 1 after belching. SKIN: Denies rash, itching, or wounds. NEUROLOGIC: Endorses a mild headache. [facility] Past Medical History Medical History Abnormal MRI, knee BMI 26.0-26.9,adult BMI 27.0-27.9,adult Cervicalgia Elevated liver enzymes Liver disease Low vitamin D level Mixed hyperlipidemia Tear of medial meniscus of right knee Type 2 diabetes mellitus with hyperglycemia Surgical History Surgical History History of cervical discectomy History of hysterectomy History of meniscectomy of left knee (~2020) History of tubal ligation History of umbilical hernia repair Family History Family History Grandparent Family history of malignant neoplasm Family history of heart disease in male family member before age 55 Diabetes mellitus Father No problems noted. Mother Heart disease Diabetes mellitus COVID-19 Sibling No problems noted. Social History Social History Smoking status: Never smoker Alcohol intake: current Substance use: never Substance use type: does not use Additional occupation/education comments: PT Gender identity (if verbalized by the patient): Female Exam Narrative: GENERAL: Well-appearing, no acute distress. EYES: conjunctivae clear ENT: Mucous membranes moist. TM pearly fonseca with normal light reflex bilaterally; no tragal tenderness. Oropharynx pink and moist without lesions. Tonsils 1+ and without exudate. No drooling, no trismus, uvula midline. No tripod positioning, hot potato voice, or soft palate swelling. Hoarseness noted on exam. NECK: Supple. No lymphadenopathy CHEST: Clear to auscultation, breath sounds equal. No respiratory distress, speaks in full sentences. HEART: Regular rate and rhythm. No murmur heard. SKIN: Warm, dry, no tejas
[2022-03-19 08:49] VITALS: O2SAT 100
== END 2022-03-19 09:06 | disposition home or self-care (01) ==
PROVIDERS: Emergency Provider Nurse Practitioner Family; PCP Family Medicine
DX: R13.10 Dysphagia, unspecified (principal); E78.5 Hyperlipidemia, unspecified; E11.9 Type 2 diabetes mellitus without complications; Z79.84 Long term (current) use of oral hypoglycemic drugs
CPT/HCPCS: 87081; 87880; 99213; G0463

== ENCOUNTER 2022-05-02 00:32 | Day surgery (SDC) | payer OTHER, SELFPAY ==
[2022-04-18 14:39] VITALS: BMI 27.0
--- NOTE | 2022-05-01 14:24 | PM.HPGS ---
History of Present Illness History of Present Illness Consent: Risks, benefits, and alternatives have been discussed and questions answered. Patient agrees to proceed with procedure. Chief complaint: dysphagia Narrative: Hodan Mg is a 57 year old female who is here for dysphagia.? Past medical including BAY, type 2 diabetes status post 2 anterior cervical spinal surgeries (last one in July 2021).? States she has been told she has scar tissue from her anterior cervical surgery in the past. No dysphagia prior to March. Reports dysphagia starting 03/18/2022 after eating bread and had vomited back up.?? Review of Systems Review of Systems: All systems reviewed & are unremarkable except as noted in HPI and below PMFSH Past Medical History Medical History Abnormal MRI, knee BMI 26.0-26.9,adult BMI 27.0-27.9,adult Cervicalgia Dysphonia Elevated liver enzymes Liver disease Low vitamin D level Mixed hyperlipidemia BAY (nonalcoholic steatohepatitis) Tear of medial meniscus of right knee Type 2 diabetes mellitus with hyperglycemia Surgical History Surgical History History of cervical discectomy History of hysterectomy History of meniscectomy of left knee (~2019) History of tubal ligation History of umbilical hernia repair Family History Family History Grandparent Family history of malignant neoplasm Family history of heart disease in male family member before age 55 Diabetes mellitus Father No problems noted. Mother Heart disease Diabetes mellitus COVID-19 Sibling No problems noted. Social History Social History Smoking status: Never smoker Alcohol intake: current Substance use: never Substance use type: does not use Living arrangements: with family Additional occupation/education comments: PT Gender identity (if verbalized by the patient): Female Spiritual care concerns: No Meds Home Medications and Allergies Home Medications Medication Instructions Recorded Confirmed Type multivit with minerals-iron 18 1 tablet PO DAILY 06/23/19 05/02/22 History mg-folic ac 400 mcg-vit K 25 mcg tablet (Adults Multivitamin) albuterol sulfate 90 mcg/actuation 1 puff inhalation Q4H PRN 07/18/20 04/18/22 Rx aerosol inhaler (ProAir HFA) shortness of breath or wheezing #18 grams flash glucose scanning reader #1 ea 10/12/20 04/18/22 Rx (FreeStyle Jessica 14 Day [place]) gabapentin 600 mg tablet 600 mg PO DAILY 04/20/21 05/02/22 History meloxicam 15 mg tablet (Mobic) 15 mg PO DAILY #90 tabs 05/22/21 05/02/22 Rx lisinopril 5 mg tablet 5 mg PO DAILY #90 tabs 12/10/21 05/02/22 Rx carvedilol 12.5 mg tablet See Rx Instructions .Route 12/19/21 04/18/22 Rx .COMPLEX #60 tabs flash glucose sensor (FreeStyle See Rx Instructions .Route 01/02/22 04/18/22 Rx Jessica 14 Day Sensor kit) .COMPLEX #1 kit atorvastatin 20 mg tablet 20 mg PO DAILY #90 tabs 02/05/22 05/02/22 Rx duloxetine 30 mg capsule,delayed 30 mg PO DAILY #30 caps 03/04/22 05/02/22 Rx release montelukast 10 mg tablet 10 mg PO DAILY #30 tabs 03/04/22 05/02/22 Rx (Singulair) cyclobenzaprine 10 mg tablet 10 mg PO .hs PRN muscle spasm #90 03/16/22 05/02/22 Rx tabs empagliflozin 5 mg-metformin 1,000 1 tablet PO DAILY 03/19/22 05/02/22 History mg tablet (Synjardy) omeprazole 40 mg capsule,delayed 40 mg PO BID #60 caps 03/20/22 04/18/22 Rx release empagliflozin 5 mg-metformin 1,000 1 tablet PO BID #60 tabs 03/27/22 05/02/22 Rx mg tablet (Synjardy) exenatide microspheres 2 mg/0.85 2 mg (0.85 mL) subcut WEEKLY #3.4 04/17/22 Rx mL subcutaneous auto-injector mL (Portia Mata) Allergies Allergy/AdvReac Type Severity Reaction Status Date / Time No Known Allergies Allergy
[2022-05-02 08:58] VITALS: BP 154/96; PULSE 68; RESP 20; TEMP 36.6; O2SAT 68; BMI 26.4
[2022-05-02] MEDS: LACTATED RINGERS 1,000 ML 150 ML IV CONT (09:01)
--- NOTE | 2022-05-02 09:30 | WPDANESEPPF ---
Anes - Initial Pre Proc Eval Procedure: Operation Date: 05/02/22 10:00 Proposed Procedures p Esophagogastroduodenoscopy EGD - Mariusz Castillo MD Date/Time: 05/02/22 09:30 Surgeon: Mariusz Castillo MD Pre Op Diagnosis: dysphagia Patient Data Age: 57 Gender: F Height: 1.78 m Weight: 83.6 kg Last Vital Signs Temp 36.6 C 05/02/22 08:58 Pulse 68 05/02/22 08:58 Resp 20 05/02/22 08:58 BP 154/96 H 05/02/22 08:58 Pulse Ox 68 L 05/02/22 08:58 O2 Del Method Room Air 05/02/22 08:58 Allergies Allergy/AdvReac Type Severity Reaction Status Date / Time No Known Allergies Allergy Verified 05/02/22 08:56 Home Medications Medication Instructions Recorded Confirmed Type multivit with minerals-iron 18 1 tablet PO DAILY 06/23/19 05/02/22 History mg-folic ac 400 mcg-vit K 25 mcg tablet (Adults Multivitamin) albuterol sulfate 90 mcg/actuation 1 puff inhalation Q4H PRN 07/18/20 04/18/22 Rx aerosol inhaler (ProAir HFA) shortness of breath or wheezing #18 grams flash glucose scanning reader #1 ea 10/12/20 04/18/22 Rx (FreeStyle Jessica 14 Day [place]) gabapentin 600 mg tablet 600 mg PO DAILY 04/20/21 05/02/22 History meloxicam 15 mg tablet (Mobic) 15 mg PO DAILY #90 tabs 05/22/21 05/02/22 Rx lisinopril 5 mg tablet 5 mg PO DAILY #90 tabs 12/10/21 05/02/22 Rx carvedilol 12.5 mg tablet See Rx Instructions .Route 12/19/21 04/18/22 Rx .COMPLEX #60 tabs flash glucose sensor (FreeStyle See Rx Instructions .Route 01/02/22 04/18/22 Rx Jessica 14 Day Sensor kit) .COMPLEX #1 kit atorvastatin 20 mg tablet 20 mg PO DAILY #90 tabs 02/05/22 05/02/22 Rx duloxetine 30 mg capsule,delayed 30 mg PO DAILY #30 caps 03/04/22 05/02/22 Rx release montelukast 10 mg tablet 10 mg PO DAILY #30 tabs 03/04/22 05/02/22 Rx (Singulair) cyclobenzaprine 10 mg tablet 10 mg PO .hs PRN muscle spasm #90 03/16/22 05/02/22 Rx tabs empagliflozin 5 mg-metformin 1,000 1 tablet PO DAILY 03/19/22 05/02/22 History mg tablet (Synjardy) omeprazole 40 mg capsule,delayed 40 mg PO BID #60 caps 03/20/22 04/18/22 Rx release empagliflozin 5 mg-metformin 1,000 1 tablet PO BID #60 tabs 03/27/22 05/02/22 Rx mg tablet (Synjardy) exenatide microspheres 2 mg/0.85 2 mg (0.85 mL) subcut WEEKLY #3.4 04/17/22 Rx mL subcutaneous auto-injector mL (Bydureon BCise) Patient hx anesthesia problems: none Family hx anesthesia problems: none Results Review: All pre-operative results and documents have been reviewed as part of the pre-operative evaluation. [facility] Past Medical History Medical History Abnormal MRI, knee BMI 26.0-26.9,adult BMI 27.0-27.9,adult Cervicalgia Dysphonia Elevated liver enzymes Liver disease Low vitamin D level Mixed hyperlipidemia BAY (nonalcoholic steatohepatitis) Tear of medial meniscus of right knee Type 2 diabetes mellitus with hyperglycemia Surgical History Surgical History History of cervical discectomy History of hysterectomy History of meniscectomy of left knee (~2019) History of tubal ligation History of umbilical hernia repair Family History Family History Grandparent Family history of malignant neoplasm Family history of heart disease in male family member before age 55 Diabetes mellitus Father No problems noted. Mother Heart disease Diabetes mellitus COVID-19 Sibling No problems noted. Social History Social History Smoking status: Never smoker Alcohol intake: current Substance use: never Substance use type: does not use Living arrangements: with family Additional occupation/education comments: PT Gender identity (if verbalized by the patient): Female Spiritual care concerns: No Anes - Ev
[2022-05-02 10:22] VITALS: BP 153/109; PULSE 93; RESP 21; O2SAT 68
[2022-05-02 10:32] VITALS: BP 153/99; PULSE 82; RESP 21; O2SAT 68
[2022-05-02 10:38] VITALS: BP 150/99; PULSE 82; RESP 21; O2SAT 68
== END 2022-05-02 10:52 | disposition home or self-care (01) ==
PROVIDERS: PCP Family Medicine; Visit Provider Internal Medicine Gastroenterology
PROC: 0DJ08ZZ Inspection of Upper Intestinal Tract, Via Natural or Artificial Opening Endoscopic (ICD-10-PCS; CPT 43235; principal; 2022-05-02 10:00)
DX: R13.10 Dysphagia, unspecified (principal); K31.84 Gastroparesis; K31.7 Polyp of stomach and duodenum; E78.2 Mixed hyperlipidemia; E11.9 Type 2 diabetes mellitus without complications; K75.81 Nonalcoholic steatohepatitis (NASH); Z95.1 Presence of aortocoronary bypass graft; Z79.51 Long term (current) use of inhaled steroids; Z79.84 Long term (current) use of oral hypoglycemic drugs
CPT/HCPCS: 43239; 43251; 87081; 88305; J2704; J7120

== ENCOUNTER 2022-07-04 08:08 | Outpatient (CLI) | payer OTHER, SELFPAY ==
--- NOTE | ~2022-07-04 | US_ITS ---
Limited Abdominal Sonogram: Real-time sonographic imaging of the right upper quadrant was performed. Clinical History: Nonalcoholic steatohepatitis Findings: The liver appears mildly echogenic, with no evidence of mass lesion or bile duct dilatatio n. Main portal vein demonstrates normal direction of flow. The gallbladder is moderately distended, a nd appears normal with no evidence of gallstone or wall thickening. The common bile duct measures 2 m m. The visualized pancreas, aorta, and IVC are unremarkable. Impression: Fatty infiltration of liver. Reviewed, dictated and finalized at location M. OR SCRIPT EDITOR Impression: Fatty infiltration of liver.
== END 2022-07-04 08:09 | disposition home or self-care (01) ==
LOC: ANHIMG 08:10
PROVIDERS: PCP Family Medicine; Visit Provider Nurse Practitioner
DX: K75.81 Nonalcoholic steatohepatitis (NASH) (principal)
CPT/HCPCS: 76705

== ENCOUNTER 2022-09-17 09:34 | Outpatient (CLI) | payer OTHER, SELFPAY ==
--- NOTE | 2022-09-17 09:39 | ECG_ITS ---
Measurements Intervals [place] Rate: 71 P: 56 [place]: 162 QRS: -42 QRSD: 96 T: 29 QT: 375 QTc: 408 Interpretive Statements SINUS RHYTHM LEFT AXIS DEVIATION CANNOT RULE OUT SEPTAL INFARCT, AGE INDETERMINATE BORDERLINE T WAVE ABNORMALITY- INF/LAT LEADS ABNORMAL ECG COMPARED TO ECG 06/24/2019 15:25:29 NO SIGNIFICANT CHANGES Electronically Signed On 09-17-2022 10:09:03 CDT by Boni Marquez D.O.
[2022-09-17 10:13] LABS: Anion Gap 7 mmol/L (8-16); Blood Urea Nitrogen 15 mg/dL (7-17); Carbon Dioxide 29 mmol/L (22-30); Chloride 104 mmol/L (98-107); Estimated Glomerular Filt Rate > 60; Glucose 90 mg/dL (65-110); Sodium 140 mmol/L (137-145)
== END 2022-09-17 09:35 | disposition home or self-care (01) ==
PROVIDERS: Anesthesiology; PCP Family Medicine; Visit Provider Orthopaedic Surgery
DX: Z01.818 Encounter for other preprocedural examination (principal); E11.65 Type 2 diabetes mellitus with hyperglycemia; R94.31 Abnormal electrocardiogram [ECG] [EKG]
CPT/HCPCS: 36415; 80048; 93005

== ENCOUNTER 2022-09-17 10:08 | Outpatient (CLI) | payer OTHER, SELFPAY ==
[2022-09-17 10:30] LABS: Hemoglobin 13.4 g/dL (12.0-15.0); Mean Corpuscular HGB Conc 31.9 g/dl (32-36); Mean Corpuscular Hemoglobin 28.3 pg (26-34); Mean Corpuscular Volume 88.8 fl (80-100); Mean Platelet Volume 9.4 fl (7.4-10.4); Platelet Count Result 268 k/mm3 (150-375); Red Blood Count 4.73 M/mm3 (4.2-5.4); Red Cell Distribution Width 13.4 % (11.5-14.5); White Blood Count 6.5 K/mm3 (4.5-10.0)
[2022-09-17 10:40] LABS: Hemoglobin A1C 6.3 % (<5.7)
[2022-09-17 10:42] LABS: Alanine Aminotransferase 78 U/L (6-35); Albumin Level 4.7 g/dL (3.5-5.1); Alkaline Phosphatase 75 U/L (38-126); Anion Gap 6 mmol/L (8-16); Aspartate Amino Transferase 51 U/L (14-36); Bilirubin,Total 0.6 mg/dL (0.2-1.3); Blood Urea Nitrogen 16 mg/dL (7-17); Calcium 10.1 mg/dL (8.4-10.2); Carbon Dioxide 29 mmol/L (22-30); Chloride 104 mmol/L (98-107); Cholesterol 97 mg/dL (0-200); Estimated Glomerular Filt Rate > 60; Glucose 95 mg/dL (65-110); HDL Direct 32 mg/dL; Potassium 4.4 mmol/L (3.4-5.0); Sodium 139 mmol/L (137-145); Triglycerides 117 mg/dL (<150)
[2022-09-17 10:53] LABS: LDL Cholesterol Direct 49 mg/dL
[2022-09-17 11:03] LABS: MALB Creatinine Ratio 37.9 mg/g (0-30); Microalbumin Urine Random 35.6 mg/L (0-16.7)
== END 2022-09-17 10:09 | disposition home or self-care (01) ==
PROVIDERS: PCP Family Medicine; Visit Provider Nurse Practitioner Family
DX: R74.8 Abnormal levels of other serum enzymes (principal); E11.65 Type 2 diabetes mellitus with hyperglycemia; E78.2 Mixed hyperlipidemia; F32.A Depression, unspecified; R53.83 Other fatigue
CPT/HCPCS: 36415; 80053; 80061; 82043; 83036; 84443; 85027

== ENCOUNTER 2022-09-21 01:04 | Day surgery (SDC) | payer OTHER, SELFPAY ==
[2022-09-14 11:46] VITALS: BMI 27.2
--- NOTE | 2022-09-14 11:51 | PC.NURSE ---
Report to the Outpatient Waiting Room, entrance under the green pavilion located off [facility], at time 10:00 on date 09/21/22. Planned Procedure Time: 12:00. Time changes happen often and if your time is changed the preop area will call you the afternoon before. - You and your visitor will be asked to self-screen and do not enter if you have any COVID symptoms. - A mask is optional within the hospital at this time. Patients may have clear liquids (water, carbonated beverages, clear teas, apple juice) until 3 hours prior to surgery with a maximum of 20 ounces. - No food from midnight until time of surgery Take the following medications with a SIP of water the morning of surgery: CARVEDILOL, CYMBALTA, GABAPENTIN DO NOT STOP ANY OF YOUR OTHER PRESCRIPTION MEDICATIONS PRIOR TO SURGERY EXCEPT THE FOLLOWING Medications to discontinue per physician: VITAMINS/SUPPLEMENTS Date to take last dose: 09/17/22 Please no make-up, nail [place] islander, hairspray, perfume, deodorant, or body powder the day of surgery. No jewelry (including any body piercings) or valuables the day of surgery, leave them at home. Please take a shower or bath the night before, or the morning of, surgery with an antibacterial soap. Wear comfortable, loose fitting clothing. - Jewelry must be removed prior to entering the operating room. Rings and piercings that are not removed may be cut off. - The hospital will not accept responsibility for valuables. - Please leave all valuables, including medications, at home the day of surgery. If you are going home after surgery, a licensed yard driver must drive you home. - NO public transportation without another adult if you receive anesthesia. - We recommend that an adult stay with you for 24 hours following discharge. - We also recommend that you do not drive, make important decision, drink alcoholic beverages, or take any drugs that were not prescribed by your health care provider for at least 24 hours after your discharge time. Follow any additional instructions given to you from your surgeon. If you or anyone in your household have experienced Covid symptoms in the past week, please notify your surgeon or the nurse liaison at the phone number below for possible testing. Telephone instructions given to PT - MELISSA ARRIAGA and asked if any additional questions and then verbalized understanding. Patient advised to call surgeon office or pre surgery nurse liaison [phone] if any additional questions.
[2022-09-21] VITALS (13 sets, daily range): BP systolic 124–162; BP diastolic 73–105; PULSE 66–82; RESP 10–23; TEMP 36.1–36.4; O2SAT 91–99
[2022-09-21] MEDS: ACETAMINOPHEN 500 MG TABLET 1000 MG PO (10:33)
[2022-09-21] MEDS: KETOROLAC 15 MG/ML VIAL (*BKC) IV PUSH (10:49)
[2022-09-21 10:52] LABS: Glucose Point of Care 99 mg/dl (65-105)
--- NOTE | 2022-09-21 11:18 | WPDANESEPPF ---
Anes - Initial Pre Proc Eval Procedure: Operation Date: 09/21/22 12:00 Proposed Procedures p Left Shoulder Arthroscopic Biceps Tenodesis, Labral Debridement,Subacromial Decompression - Antonino Williamson MD Date/Time: 09/21/22 11:18 Surgeon: Antonino Williamson MD Pre Op Diagnosis: Lt Shoulder Biceps Tendinitis Patient Data Age: 57 Gender: F Height: 1.78 m Weight: 85 kg Last Vital Signs Temp 36.3 C L 09/21/22 10:08 Pulse 71 09/21/22 10:08 Resp 16 09/21/22 10:08 BP 142/99 H 09/21/22 10:08 Pulse Ox 99 09/21/22 10:08 O2 Del Method Room Air 09/21/22 10:08 Allergies Allergy/AdvReac Type Severity Reaction Status Date / Time No Known Allergies Allergy Verified 09/21/22 10:24 Home Medications Medication Instructions Recorded Confirmed Type multivit with minerals-iron 18 1 tablet PO DAILY 06/23/19 09/21/22 History mg-folic ac 400 mcg-vit K 25 mcg tablet (Adults Multivitamin) gabapentin 600 mg tablet 600 mg PO TID 04/20/21 09/21/22 History omeprazole 40 mg capsule,delayed 40 mg PO BID #60 caps 05/13/22 09/21/22 Rx release duloxetine 30 mg capsule,delayed 30 mg PO DAILY #30 caps 05/28/22 09/21/22 Rx release lisinopril 5 mg tablet 5 mg PO DAILY #90 tabs 06/05/22 09/21/22 Rx blood-glucose sensor (FreeStyle #1 ea 07/02/22 09/17/22 Rx Jessica 3 Sensor device) carvedilol 12.5 mg tablet See Rx Instructions .Route 07/03/22 09/21/22 Rx .COMPLEX #60 tabs montelukast 10 mg tablet 10 mg PO DAILY #30 tabs 07/03/22 09/21/22 Rx (Singulair) albuterol sulfate 90 mcg/actuation 1 puff inhalation Q4H PRN 07/15/22 09/21/22 Rx aerosol inhaler (ProAir HFA) shortness of breath or wheezing #18 grams cyclobenzaprine 10 mg tablet 10 mg PO .hs PRN muscle spasm #90 07/19/22 09/21/22 Rx tabs atorvastatin 20 mg tablet 20 mg PO DAILY #90 tabs 08/03/22 09/21/22 Rx empagliflozin 5 mg-metformin 1,000 2 tablet PO DAILY #60 tabs 08/03/22 09/21/22 Rx mg tablet (Synjardy) famotidine 40 mg tablet 40 mg PO .hold 08/27/22 09/21/22 History exenatide microspheres 2 mg/0.85 2 mg (0.85 mL) subcut WEEKLY #3.4 09/03/22 09/21/22 Rx mL subcutaneous auto-injector mL (ByLawPath) omega 1-jff-gsv-fish oil 1,000 mg 1 cap PO DAILY 09/14/22 09/21/22 History (120 mg-180 mg) capsule (Fish Oil) prednisone 10 mg tablet 30 mg PO DAILY #15 tabs 09/17/22 09/21/22 Rx Laboratory Tests 09/21/22 10:48 POC Capillary Glucose 99 mg/dl (65-105) Patient hx anesthesia problems: none Family hx anesthesia problems: none Results Review: All pre-operative results and documents have been reviewed as part of the pre-operative evaluation. [facility] Past Medical History Medical History Abnormal MRI, knee BMI 27.0-27.9,adult Cervicalgia Dysphonia Elevated liver enzymes Liver disease Low vitamin D level Mixed hyperlipidemia BAY (nonalcoholic steatohepatitis) Obesity Tear of medial meniscus of right knee Type 2 diabetes mellitus with hyperglycemia Surgical History Surgical History History of cervical discectomy History of hysterectomy History of meniscectomy of left knee (~2019) History of tubal ligation History of umbilical hernia repair Family History Family History Grandparent Family history of malignant neoplasm Family history of heart disease in male family member before age 55 Diabetes mellitus Father Diabetes mellitus Liver disease Heart disease Hyperlipemia Hypertension Mother Heart disease Diabetes mellitus COVID-19 Hypertension Sibling Cerebrovascular accident Diabetes mellitus Hypertension Hyperlipemia Social History Social History Smoking status: Never smoker Second hand tobacco smoke exposure: Yes Alcohol
--- NOTE | 2022-09-21 11:52 | WPDHPUPDATE1 ---
History and Physical Update Update Date/Time: 09/21/22 11:52 History and Physical has been reviewed, including an updated exam of the patient. There are NO changes in the patient's condition. Risks, benefits, and alternatives have been discussed and questions answered. Patient agrees to proceed with procedure.
[2022-09-21] MEDS: ceFAZolin 2 GM/D5W 50 ML 2 GM/50 ML BAG IVPB (12:27)
[2022-09-21] MEDS: LACTATED RINGERS 1,000 ML 30 ML IV CONT ×2 (13:00→14:25)
[2022-09-21] MEDS: BUPIVACAINE/EPINEPHRINE 0.5% 50 ML VIAL 30 ML INFILTRATE (13:16)
[2022-09-21] MEDS: EPINEPHrine HCL INJ 1 MG/ML AMPUL 2 MG IRRIGATION (13:17)
--- NOTE | 2022-09-21 14:30 | W.PM.PROC2 ---
Procedure Note - Detailed Date of Procedure 09/21/22 Pre-op Diagnosis Lt Shoulder Biceps Tendinitis. SLAP tear. Impingement syndrome. Post-op Diagnosis Same Procedure Performed Left shoulder 1. Arthroscopic biceps tenodesis with SLAP tear debridement. 2. Arthroscopic subacromial decompression. Surgeon Antonino Williamson MD Anesthesia General Description of Procedure Preoperative antibiotics were given. The patient was brought to the operating room. Careful positioning in the beach chair was accomplished. The head neck were carefully positioned, with particular care due to her cervical fusion and limited range of motion. A small bump was placed under the left shoulder. The shoulder was examined. Moderate hyperlaxity observed. No gross instability. The shoulder was prepped and draped in the usual sterile fashion. Standard posterior and anterior arthroscopic portals were established. The shoulder was inspected. Extensive SLAP tear confirmed. Significant degeneration and instability. Minimal low-grade fraying of the articular supraspinatus. Tearing of the superior and anterior labrum. Sublabral foramen with middle glenohumeral ligament extending to the superior labrum. Drive-through sign positive. Some attenuation of the anterior inferior capsule near the humerus. Of note, she had a history of adhesive capsulitis twice. The loop and tack system from [employer] was utilized to secure the biceps tendon and tenodesed it to the articular margin with a SwiveLock bioabsorbable anchor. Tendon was released from the superior labrum prior to fixation. The articular cartilage was very healthy. The subscapularis and remaining rotator cuff were normal. Attention was turned to the subacromial space. A complete bursectomy was performed. Moderate downsloping of the acromion without any definite evidence of an impinging lesion. The bursal sided rotator cuff was healthy. An accessory lateral portal was created. The acromion was clearly visualized. The coracoacromial ligament was released. Careful acromioplasty was performed utilizing views from both lateral and posterior. Loose bone fragments were carefully irrigated from the joint. The arthroscopic instruments were removed. The wounds were closed with interrupted 4-0 Monocryl suture followed by Steri-Strips. A sterile dressing was applied with a sling. The patient was extubated and brought to the recovery room in stable condition. There were no complications. Implants [employer] SwiveLock anchor with the loop and tack system. Estimated Blood Loss 5 Complications No immediate complications Condition Stable Disposition PACU [facility] Billing Surgery - Charge Forward: Surgery Billing
[2022-09-21 14:52] LABS: Glucose Point of Care 122 mg/dl (65-105)
[2022-09-21] MEDS: fentaNYL CITRATE INJ (*CRX) 100 MCG/2 ML VIAL 25 MCG IV PUSH ×2 (15:21→15:26)
[2022-09-21] MEDS: hydrALAZINE HCL 20 MG/ML VIAL 10 MG IV PUSH (15:51)
[2022-09-21] MEDS: ONDANSETRON INJ 4 MG/2 ML VIAL IV PUSH (16:24)
== END 2022-09-21 17:10 | disposition home or self-care (01) ==
PROVIDERS: PCP Family Medicine; Visit Provider Orthopaedic Surgery
PROC: (CPT 29805; principal; 2022-09-21 12:00)
DX: M75.22 Bicipital tendinitis, left shoulder (principal); M75.42 Impingement syndrome of left shoulder; M75.82 Other shoulder lesions, left shoulder; Z79.51 Long term (current) use of inhaled steroids; Z79.84 Long term (current) use of oral hypoglycemic drugs; E11.9 Type 2 diabetes mellitus without complications; E78.2 Mixed hyperlipidemia; K75.81 Nonalcoholic steatohepatitis (NASH)
CPT/HCPCS: 29828; 36415; 80048; 80053; 80061; 82043; 82948; 83036; 84443; 85027; 93005; A4565; A9270; C1713; J0171; J0330; J0360; J0690; J1100; J1170; J1885; J2250; J2405; J2704; J3010; J7120

== ENCOUNTER 2023-07-09 08:12 | Outpatient (CLI) | payer OTHER, SELFPAY ==
--- NOTE | ~2023-07-09 | NM_ITS ---
EXAM: NM gastric emptying study DATE: 07/09/2023 12:56 INDICATION: Gastroesophageal reflux disease. [place]. TECHNIQUE: A gastric emptying study was performed using the methodology of Ehsan HOANG, et al. J Nucl Med 2007; 48:568-572. The patient was given a meal consisting of 2 scrambled eggs labeled with 0.981 mCi Tc-99m sulfur colloid, 2 slices of toast, two packages of jam, and approximately 120 mL of water . Simultaneous anterior and posterior 1-min images of the abdomen were obtained with the patient supi ne at multiple time points over a total period of 4 hours. The geometric mean of anterior and posteri or views was determined, and the percentage retention was calculated for each time point. COMPARISON: Head CT 12/12/2004 FINDINGS: Gastric retention of the radiotracer-labeled meal was 36%, 13%, and 4% at the 1-hour, 2-ho ur, and 4-hour time points, respectively. With this technique, apparent rapid gastric emptying is sug gested by <30% gastric retention at 1 hour. Delayed gastric emptying is defined by gastric retention of >90% at 1 hour, >60% retention at 2 hours, or >10% retention at 4 hours. IMPRESSION: 1. Normal gastric emptying. Reviewed, dictated and finalized at location A. ISSARY AGENT IMPRESSION: 1. Normal gastric emptying.
[2023-07-09 10:16] LABS: Hematocrit 42.9 % (37.0-47.0); Hemoglobin 13.9 g/dL (12.0-15.0); Mean Corpuscular HGB Conc 32.4 g/dl (32-36); Mean Corpuscular Hemoglobin 28.7 pg (26-34); Mean Corpuscular Volume 88.5 fl (80-100); Mean Platelet Volume 9.3 fl (7.4-10.4); Platelet Count Result 195 k/mm3 (150-375); Red Blood Count 4.85 M/mm3 (4.2-5.4); Red Cell Distribution Width 13.8 % (11.5-14.5); White Blood Count 5.9 K/mm3 (4.5-10.0)
[2023-07-09 10:27] LABS: INR 0.9; Prothrombin Time 12.9 Seconds (11.1-14.7)
[2023-07-09 10:28] LABS: Alanine Aminotransferase 86 U/L (6-35); Albumin Level 4.4 g/dL (3.5-5.1); Alkaline Phosphatase 67 U/L (38-126); Anion Gap 7 mmol/L (8-16); Aspartate Amino Transferase 66 U/L (14-36); Bilirubin,Total 0.6 mg/dL (0.2-1.3); Blood Urea Nitrogen 18 mg/dL (7-17); Calcium 9.6 mg/dL (8.4-10.2); Carbon Dioxide 29 mmol/L (22-30); Chloride 103 mmol/L (98-107); Estimated Glomerular Filt Rate > 60; Glucose 165 mg/dL (65-110); Sodium 139 mmol/L (137-145)
== END 2023-07-09 08:13 | disposition home or self-care (01) ==
PROVIDERS: PCP Family Medicine; Visit Provider Nurse Practitioner
DX: T18.2XXA Foreign body in stomach, initial encounter (principal); K75.81 Nonalcoholic steatohepatitis (NASH); K21.9 Gastro-esophageal reflux disease without esophagitis; W44.F1XA Bezoar entering into or through a natural orifice, initial encounter
CPT/HCPCS: 36415; 78264; 80053; 85027; 85610; A9541

== ENCOUNTER 2023-08-21 00:57 | Day surgery (SDC) | payer OTHER, SELFPAY ==
[2023-08-07 13:05] VITALS: BMI 26.9
[2023-08-21 09:34] VITALS: BP 133/86; PULSE 70; RESP 20; TEMP 36.3; O2SAT 100; BMI 27.3
[2023-08-21] MEDS: LACTATED RINGERS 1,000 ML 150 ML IV CONT (09:44)
[2023-08-21 09:48] LABS: Glucose Point of Care 118 mg/dl (65-105)
--- NOTE | 2023-08-21 10:16 | WPDANESEPPF ---
Anes - Initial Pre Proc Eval Procedure: Operation Date: 08/21/23 11:00 Proposed Procedures p Esophagogastroduodenoscopy - Elier Wan MD Date/Time: 08/21/23 10:16 Surgeon: Elier Wan MD Pre Op Diagnosis: GERD,Nausea,Eructation Patient Data Age: 58 Gender: F Height: 1.78 m Weight: 86.5 kg Last Vital Signs Temp 97.3 F L 08/21/23 09:34 Pulse 70 08/21/23 09:34 Resp 20 08/21/23 09:34 BP 133/86 08/21/23 09:34 Pulse Ox 100 08/21/23 09:34 O2 Del Method Room Air 08/21/23 09:34 Allergies Allergy/AdvReac Type Severity Reaction Status Date / Time No Known Allergies Allergy Verified 08/21/23 09:33 Home Medications Medication Instructions Recorded Confirmed Type omega 5-rtl-ehy-fish oil 1,000 mg 1 cap PO DAILY 09/14/22 08/21/23 History (120 mg-180 mg) capsule (Fish Oil) oxycodone-acetaminophen 5 mg-325 1 - 2 tablet PO Q4-6H PRN pain #30 09/21/22 08/21/23 Rx mg tablet tabs carvedilol 12.5 mg tablet See Rx Instructions .Route 01/28/23 08/21/23 Rx .COMPLEX #60 tabs lisinopril 5 mg tablet 5 mg PO DAILY #90 tabs 01/31/23 08/21/23 Rx atorvastatin 20 mg tablet 20 mg PO DAILY #90 tabs 03/04/23 08/21/23 Rx cyclobenzaprine 10 mg tablet 10 mg PO .hs PRN muscle spasm #90 03/25/23 08/21/23 Rx tabs montelukast 10 mg tablet 10 mg PO DAILY #30 tabs 04/17/23 08/21/23 Rx (Singulair) exenatide microspheres 2 mg/0.85 2 mg (0.85 mL) subcut WEEKLY #3.4 05/18/23 08/21/23 Rx mL subcutaneous auto-injector mL (ByPersoneta BCise) blood-glucose sensor (FreeStyle #1 ea 05/20/23 06/27/23 Rx Jessica 3 Sensor device) empagliflozin 5 mg-metformin 1,000 2 tablet PO DAILY #60 tabs 06/24/23 08/21/23 Rx mg tablet (Synjardy) duloxetine 30 mg capsule,delayed 30 mg PO DAILY #30 caps 07/25/23 08/21/23 Rx release albuterol sulfate 90 mcg/actuation 1 puff inhalation Q4H PRN 07/29/23 08/21/23 Rx aerosol inhaler (ProAir HFA) shortness of breath or wheezing #18 grams pantoprazole 40 mg tablet,delayed 40 mg PO BID #60 tabs 08/09/23 08/21/23 Rx release Laboratory Tests 08/21/23 09:43 POC Capillary Glucose 118 H mg/dl (65-105) Patient hx anesthesia problems: none Family hx anesthesia problems: none Results Review: All pre-operative results and documents have been reviewed as part of the pre-operative evaluation. REPLACED BY [facility] Past Medical History Medical History (Updated 06/27/23 @ 08:53 by Evie Barton, ZULEYKA) Abnormal MRI, knee BMI 27.0-27.9,adult Cervicalgia Dysphonia Elevated liver enzymes Gastric bezoar Liver disease Low vitamin D level Mixed hyperlipidemia BAY (nonalcoholic steatohepatitis) Nausea Obesity Tear of medial meniscus of right knee Type 2 diabetes mellitus with hyperglycemia Surgical History Surgical History History of cervical discectomy History of hysterectomy History of meniscectomy of left knee (~2020) History of tubal ligation History of umbilical hernia repair Family History Family History Grandparent Family history of malignant neoplasm Family history of heart disease in male family member before age 55 Diabetes mellitus Father Diabetes mellitus Liver disease Heart disease Hyperlipemia Hypertension Mother Heart disease Diabetes mellitus COVID-19 Hypertension Sibling Cerebrovascular accident Diabetes mellitus Hypertension Hyperlipemia Social History Social History Smoking status: Never smoker Second hand tobacco smoke exposure: Yes Alcohol intake: never Substance use: never Substance use type: does not use Lack of Transportation: No Lack of Food: Never True Current Housing: I Have Housing Concerned About Future Housing: No Difficulty Paying Gas/Electric Bills: No Difficulty Payi
--- NOTE | 2023-08-21 10:44 | PM.HPGS ---
History of Present Illness History of Present Illness Consent: Risks, benefits, and alternatives have been discussed and questions answered. Patient agrees to proceed with procedure. Chief complaint: GERD,Nausea,Eructation Narrative: Hodan Mg is a 58 year old female with gerd on pantoprazole, also bloating and intermittent ?rotten? smelling belching.? She does have early satiety and abdominal bloating after eating but not always.??GES normal. Review of Systems Review of Systems: All systems reviewed & are unremarkable except as noted in HPI and below PMFSH Past Medical History Medical History (Updated 08/21/23 @ 10:47 by Elier Wan MD) Abnormal MRI, knee Bloating BMI 27.0-27.9,adult Cervicalgia Dysphonia Elevated liver enzymes Gastric bezoar Liver disease Low vitamin D level Mixed hyperlipidemia BAY (nonalcoholic steatohepatitis) Nausea Obesity Tear of medial meniscus of right knee Type 2 diabetes mellitus with hyperglycemia Surgical History Surgical History History of cervical discectomy History of hysterectomy History of meniscectomy of left knee (~2019) History of tubal ligation History of umbilical hernia repair Family History Family History Grandparent Family history of malignant neoplasm Family history of heart disease in male family member before age 55 Diabetes mellitus Father Diabetes mellitus Liver disease Heart disease Hyperlipemia Hypertension Mother Heart disease Diabetes mellitus COVID-19 Hypertension Sibling Cerebrovascular accident Diabetes mellitus Hypertension Hyperlipemia Social History Social History Smoking status: Never smoker Second hand tobacco smoke exposure: Yes Alcohol intake: never Substance use: never Substance use type: does not use Lack of Transportation: No Lack of Food: Never True Current Housing: I Have Housing Concerned About Future Housing: No Difficulty Paying Gas/Electric Bills: No Difficulty Paying for Meds: No Currently Unemployed: No Education: Trade/Vocational Certificate Difficulty w/ Childcare or Family Care: No Living arrangements: with family Occupation/Education: occupation Additional occupation/education comments: PT Gender identity (if verbalized by the patient): Female Spiritual care concerns: No Meds Home Medications and Allergies Home Medications Medication Instructions Recorded Confirmed Type omega 4-vpk-udb-fish oil 1,000 mg 1 cap PO DAILY 05/05/23 04/10/24 History (120 mg-180 mg) capsule (Fish Oil) oxycodone-acetaminophen 5 mg-325 1 - 2 tablet PO Q4-6H PRN pain #30 09/21/22 08/21/23 Rx mg tablet tabs carvedilol 12.5 mg tablet See Rx Instructions .Route 01/28/23 08/21/23 Rx .COMPLEX #60 tabs lisinopril 5 mg tablet 5 mg PO DAILY #90 tabs 01/31/23 08/21/23 Rx atorvastatin 20 mg tablet 20 mg PO DAILY #90 tabs 03/04/23 08/21/23 Rx cyclobenzaprine 10 mg tablet 10 mg PO .hs PRN muscle spasm #90 03/25/23 08/21/23 Rx tabs montelukast 10 mg tablet 10 mg PO DAILY #30 tabs 04/17/23 08/21/23 Rx (Singulair) exenatide microspheres 2 mg/0.85 2 mg (0.85 mL) subcut WEEKLY #3.4 05/18/23 08/21/23 Rx mL subcutaneous auto-injector mL ([employer]) blood-glucose sensor (FreeStyle #1 ea 05/20/23 06/27/23 Rx Jessica 3 Sensor device) empagliflozin 5 mg-metformin 1,000 2 tablet PO DAILY #60 tabs 06/24/23 08/21/23 Rx mg tablet (Synjardy) duloxetine 30 mg capsule,delayed 30 mg PO DAILY #30 caps 07/25/23 08/21/23 Rx release albuterol sulfate 90 mcg/actuation 1 puff inhalation Q4H PRN 07/29/23 08/21/23 Rx aerosol inhaler (ProAir HFA) shortness of breath or wheezing #18 grams pantoprazole 40 mg tablet,delayed 40 mg PO BID #60 tabs 08/09/23 08/21/23 Rx release
[2023-08-21 11:01] VITALS: BP 149/93; PULSE 89; RESP 20; O2SAT 99
[2023-08-21 11:11] VITALS: BP 137/91; PULSE 87; RESP 20; O2SAT 98
[2023-08-21 11:21] VITALS: BP 126/92; PULSE 84; RESP 20; O2SAT 98
== END 2023-08-21 11:30 | disposition home or self-care (01) ==
PROVIDERS: PCP Family Medicine; Visit Provider Internal Medicine Gastroenterology
PROC: 0DJ08ZZ Inspection of Upper Intestinal Tract, Via Natural or Artificial Opening Endoscopic (ICD-10-PCS; CPT 43235; principal; 2023-08-21 11:00)
DX: K29.50 Unspecified chronic gastritis without bleeding (principal); K21.9 Gastro-esophageal reflux disease without esophagitis; K75.81 Nonalcoholic steatohepatitis (NASH); E78.2 Mixed hyperlipidemia; E11.9 Type 2 diabetes mellitus without complications; E66.9 Obesity, unspecified; Z68.27 Body mass index [BMI] 27.0-27.9, adult; Z79.84 Long term (current) use of oral hypoglycemic drugs; Z79.51 Long term (current) use of inhaled steroids; Z79.891 Long term (current) use of opiate analgesic
CPT/HCPCS: 43239; 82948; 88305; J2704; J7120

== ENCOUNTER 2023-09-04 13:16 | Outpatient (CLI) | payer OTHER, SELFPAY ==
[2023-09-04 19:57] LABS: INR 0.9; Prothrombin Time 12.1 Seconds (11.1-14.7)
[2023-09-04 20:14] LABS: Alanine Aminotransferase 92 U/L (6-35); Albumin Level 4.3 g/dL (3.5-5.1); Alkaline Phosphatase 76 U/L (38-126); Anion Gap 6 mmol/L (4-12); Aspartate Amino Transferase 85 U/L (14-36); Bilirubin,Total 0.5 mg/dL (0.2-1.3); Blood Urea Nitrogen 10 mg/dL (7-17); Calcium 9.5 mg/dL (8.4-10.2); Carbon Dioxide 27 mmol/L (22-30); Chloride 106 mmol/L (98-107); Estimated Glomerular Filt Rate > 60; Glucose 195 mg/dL (65-110); Potassium 3.7 mmol/L (3.4-5.0); Sodium 139 mmol/L (137-145)
[2023-09-04 20:31] LABS: Hematocrit 42.6 % (37.0-47.0); Hemoglobin 14.4 g/dL (12.0-15.0); Mean Corpuscular HGB Conc 33.8 g/dl (32-36); Mean Corpuscular Hemoglobin 30.3 pg (26-34); Mean Corpuscular Volume 89.7 fl (80-100); Mean Platelet Volume 10.2 fl (7.4-10.4); Platelet Count Result 251 k/mm3 (150-375); Red Blood Count 4.75 M/mm3 (4.2-5.4); Red Cell Distribution Width 13.2 % (11.5-14.5); White Blood Count 5.7 K/mm3 (4.5-10.0)
== END 2023-09-04 13:17 | disposition home or self-care (01) ==
LOC: ANHGOSHLAB 13:18
PROVIDERS: PCP Family Medicine; Visit Provider Nurse Practitioner
DX: K75.81 Nonalcoholic steatohepatitis (NASH) (principal)
CPT/HCPCS: 36415; 80053; 85027; 85610

== ENCOUNTER 2023-09-30 13:18 | Outpatient (CLI) | payer OTHER, SELFPAY ==
[2023-10-14 16:18] LABS: ALT 74 U/L (6-29); Alpha-2-Macroglobulin 237 mg/dL (106-279); Apolipoprotein A1 115 mg/dL (101-198); Fibrosis Score 0.31; Fibrosis Stage F1; GGT 41 U/L (3-70); Haptoglobin 106 mg/dL (43-212); Necroinflammat Act Grade A1-A2; Total Bilirubin 0.3 mg/dL (0.2-1.2)
== END 2023-09-30 13:19 | disposition home or self-care (01) ==
LOC: ANHGOSHLAB 13:20
PROVIDERS: PCP Family Medicine; Visit Provider Nurse Practitioner
DX: K75.81 Nonalcoholic steatohepatitis (NASH) (principal)
CPT/HCPCS: 36415; 81596

== ENCOUNTER 2024-01-07 09:41 | Outpatient (CLI) | payer OTHER, SELFPAY ==
[2024-01-07 10:20] LABS: Hematocrit 39.8 % (37.0-47.0); Hemoglobin 13.4 g/dL (12.0-15.0); Mean Corpuscular HGB Conc 33.7 g/dl (32-36); Mean Corpuscular Hemoglobin 28.6 pg (26-34); Mean Corpuscular Volume 84.9 fl (80-100); Mean Platelet Volume 10.3 fl (7.4-10.4); Platelet Count Result 181 k/mm3 (150-375); Red Blood Count 4.69 M/mm3 (4.2-5.4); White Blood Count 4.7 K/mm3 (4.5-10.0)
[2024-01-07 10:29] LABS: Prothrombin Time 13.8 Seconds (11.1-14.7)
[2024-01-07 10:36] LABS: Alanine Aminotransferase 114 U/L (6-35); Alkaline Phosphatase 86 U/L (38-126); Anion Gap 11 mmol/L (4-12); Aspartate Amino Transferase 87 U/L (14-36); Bilirubin,Total 0.5 mg/dL (0.2-1.3); Blood Urea Nitrogen 10 mg/dL (7-17); Calcium 9.2 mg/dL (8.4-10.2); Carbon Dioxide 25 mmol/L (22-30); Chloride 98 mmol/L (98-107); Estimated Glomerular Filt Rate > 60; Glucose 359 mg/dL (65-110); Potassium 4.2 mmol/L (3.4-5.0); Sodium 134 mmol/L (137-145)
[2024-01-07 11:59] LABS: Hemoglobin A1C 8.3 % (<5.7)
== END 2024-01-07 09:42 | disposition home or self-care (01) ==
LOC: ANHLAB 09:43
PROVIDERS: Nurse Practitioner Family; PCP Family Medicine; Visit Provider Nurse Practitioner
DX: K75.81 Nonalcoholic steatohepatitis (NASH) (principal); E11.65 Type 2 diabetes mellitus with hyperglycemia
CPT/HCPCS: 36415; 80053; 83036; 85027; 85610

== ENCOUNTER 2024-07-01 07:24 | Outpatient (CLI) | payer OTHER, SELFPAY ==
--- NOTE | ~2024-07-01 | US_ITS ---
US abdomen limited INDICATION: Nonalcoholic hepatitis PROCEDURE: Realtime right upper abdominal ultrasound. COMPARISON: No prior studies for comparison. FINDINGS: The pancreas is normal without focal mass or pancreatic ductal dilation. Liver echotexture is increased, consistent with fatty infiltration. There is normal directional flow in the portal ve in. The gallbladder is normal without stones, gallbladder wall thickening or pericholecystic fluid. Comm on bile duct measures 4 mm. No sonographic Thacker's sign. IMPRESSION: 1: Fatty infiltration of the liver. Reviewed, dictated and finalized at location B. RACT MAKER
--- OUTSIDE RECORDS SUMMARY | 2024-07-01 07:26 | XMS_ITS | Clinical Summary ---
Author Organization [facility] Address [address] [place] [address] Care Team Providers Care Blender Snuff Name Role Phone Unavailable Primary Care Provider Unavailabl e Source Comments [facility],non-owned Affiliates and Associated Physician Practices is amultiple site organization consisting of ambulatory clinics and hospital sitesin [place], [place], [place] and [place]. This disclosure is being madepursuant to the Care Everywhere program and may not contain all information available regarding this patient. Last updated 18.[facility] Active Problems Problem Noted Date Diagnosed Date Nonalcoholic steatohepatitis (BAY) 11/30/2015 Overview (07/25/2018): 04/30/05 liver biosy: BAY, no fibrosis 07/14/07 liver biopsy: BAY, grade 1 steatosis, focal PSF, stage 2 fibrosis after receiving vitamin E in the PIVENS trial 08/07/11 liver biopsy: BAY, grade 3 steatosis, dense PSF, stage 2 11/15/15 liver biopsy: BAY, stage 2 dwp Personal history of other en docrine, nutritional and metabolic disease 11/15/2015 Overview (07/25/2018): Now overwt Cyst of ovary 09/19/2015 Overview (07/25/2018): 3.7 x 2.6 cm complex left ovarian cyst seen on a study MRI (not in record) on 09/21/11, discussed w/Pt, seen by Postal Delivery Officer and had an ultrasound that just showed a cyst Essential (primary) hypertension 06/04/2012 Type 2 diabetes mellitus without complications 0 07/05/2011 Overview (07/25/2018): Diagnosed 04/22 Immunizations Name Administration Dates Next Due HepB Unspecified formulation 05/13/1999,05/13/19 00,05/13/1999 Family History Medical History Relation Name Comments Alcohol abuse Brother 1 Status: Alive Alcohol abuse Brother 2 Status: Alive Diabetes Father Heart Disease Father Heart Failure Father Liver Disease Father BAY; Status: Alive Cancer Maternal Aunt 1 breast; Stat us: Cancer Maternal Aunt 2 breast; Stat us: Liver Disease Maternal Grandfather Status : Cancer Maternal Grandmother brain; Status: Diabetes Mother Heart Disease Mother Status: Alive Hypertension Mother CAD (Coronary Artery Disease) Paternal Grandfather Status: Diabetes Paternal Grandfather Relation Name Status Comments Brother 1 Brother 2 Father Maternal Aunt 1 Maternal Aunt 2 Maternal Grandfather Maternal Grandmother Mother Paternal Grandfather Social History Tobacco Use Types Packs/Day Years Used Date Smoking Tobacco: Never Smokeless Tobacco: Never Alcohol Use Standard Drinks/Week Comments No 0 (1 standard drink = 0.6 oz pur e alcohol) Sex and Gender Information Value Date Recorded Sex Assigned at Not on file Gender Identity Not on file Sexual Orientation Not on file Plan of Treatment Health Maintenance Due Date Last Done Comments COLOGUARD (AGES 45-75) - COL ON CA SCREENING 1967 COLON MONITORING 1967 COLONOSCOPY - COLON CA SCREENING 1967 CT COLONOGRAPHY - COLON CA SCREENING 1967 Colorectal Cancer Screening 1967 FIT - COLON CA SCREENING 1967 FLEX SIG - COLON CA SCREENING 1967 LIPID TESTING 1967 MAMMOGRAM 1967 PAP SMEAR 1967 HIV SCREENING 1982 HEPATITIS C SCREENING 04/25/1985 DTAP/TDAP/TD VACCINES (1 - Tdap) 1986 PNEUMOCOCCAL VACCINE 50+ (1 of 2 - PCV) 1986 PNEUMOCOCCAL VACCINE (1 of 2 - PCV) 1986 HEPATITIS B VACCINE (2 of 3 - 19+ 3-dose series) 06/10/1999 05/13/1999, 05/13/1999, 05/13/1999 ZOSTER VACCINE (1 of 2) 2017 COVID-19 VACCINE (1 - 2023-2 5 season) 2024 INFLUENZA VACCINE (#1) 2024 DEPRESSION SCREENING 05/13/2024 HIB VACCINE Aged Out No longer eligi ble based on patient's age to complete this topic HPV VACCINE Aged Out No longer eligi ble based on patient's age to complete this topic MENINGOCOCCAL (Group B) VACCINE Aged Out No longer eligible b ased on patient's age to complete this topic MENINGOCOCCAL VACCINE Aged Out No anabel michael eligible based on patient's age to complete this topic
--- OUTSIDE RECORDS SUMMARY | 2024-07-01 07:26 | XMS_ITS | Encounter Summary ---
Author Organization [facility] Address [address] [place] [address] Care Team Providers Care Pharmacist'S Aide Name Role Phone Unavailable Primary Care Provider Unavailabl e Encounter Details Date Type Department Care Team (Late st Contact Info) Description 01/06/2018 Lab Requisition [facility] [address] [facility] [facility] [place] [id number] Jae Lewis MD [address] [place] [address] Social History Tobacco Use Types Packs/Day Years Used Date Smoking Tobacco: Never Smokeless Tobacco: Never Alcohol Use Standard Drinks/Week Comments No 0 (1 standard drink = 0.6 oz pur e alcohol) Sex and Gender Information Value Date Recorded Sex Assigned at Not on file Gender Identity Not on file Sexual Orientation Not on file documented as of this encounter Plan of Treatment Not on file documented as of this encounter Procedures Procedure Name Priority Date/Time Associated Diagnosis Comments DERMATOPATHOLOGY Routine 01/02/2018 12:0 0 AM CDT documented in this encounter Results * DERMATOPATHOLOGY (01/02/2018 12:00 AM CDT) Case Report Dermatopathology Report Case: [id number] Authorizing Provider: Jae Lewis MD Collected: 01/02/2018 12:00 AM Pathologist: Kell West MD Received: 01/06/2018 08:42 AM Specimen: Skin, left buttock 2:23 PM [facility] DERMATOPATHOLOGY LABORATORY Final Diagnosis Specimen A. SKIN, left buttock: PSORIASIFORM DERMATITIS (L44.8) (see microscopic description and comment) 2:23 PM [facility] DERMATOPATHOLOGY LABORATORY Clinical History Changing lesion. Check margins. 2:23 PM [facility] DERMATOPATHOLOGY LABORATORY Gross Description Specimen A: Received is one formalin filled container labeled with the patient's name and designated left buttock. The specimen consists of a punch biopsy measuring [id number]. The margin is inked green. Jar 0. 2:23 PM [facility] DERMATOPATHOLOGY LABORATORY Microscopic Description Specimen A. SKIN, left buttock: There is psoriasiform hyperplasia of the epidermis with focal parakeratosis and spongiosis. There is a superficial, mainly lymphohistiocytic inflammatory infiltrate. Grocott's methenamine silver (GMS) stain fails to highlight fungal elements in the available sections. COMMENT: The histological differential diagnosis includes early / partially treated psoriasis and a chronic eczematous dermatitis. There is no evidence of epithelial dysplasia or malignancy in the sections examined. 2:23 PM [facility] DERMATOPATHOLOGY LABORATORY Disclaimer An external and internal positive and negative controls are appropriate for the histochemical, immunohistochemical and immunofluorescence stain(s) in this case (if any), except where stated explicitly. The performance characteristics of the stain(s) cited in this report were developed and its performance characteristic determined by the Dermatopathology Laboratory at [facility]. These tests need not be, and therefore are not, approved by the [place] Food and Drug Administration. The tests are used for clinical purposes. Billing Codes Specimen Charges Stain Charges 48584 1 37882 1 2:23 PM T DERMATOPATHOLOGY LABORATORY Embedded Images 2:23 PM [facility] DERMATOPATHOLOGY LABORATORY Pathology/Cytolog y TISSUE SPECIMEN FROM SKIN / Unknown 01/02/2018 01/06/2018 8:42 AM CDT Jae Lewis MD LAB - PATHOLOGY/CYTO LOGY ORDERABLES DERMATOPATHOLOGY LABORATORY [facility] - Department of Dermatology [address] [place] [address], 5th Floor Lab [address] [phone] documented in this encounter Visit Diagnoses Not on filedocumented in this encounter
--- OUTSIDE RECORDS SUMMARY | 2024-07-01 07:26 | XMS_ITS | Patient Health Summary ---
Author Organization [facility] Address [address] [place] [address] Care Team Providers Care Carbon Paper Coating Supervisor Name Role Phone Unavailable Primary Care Provider Unavailabl e Note from [facility],non-owned Affiliates and Associated Physician Practices is amultiple site organization consisting of ambulatory clinics and hospital sitesin [place], [place], [place] and [place]. This disclosure is being madepursuant to the Care Everywhere program and may not contain all information available regarding this patient. Last updated 18.[facility] Active Problems Problem Noted Date Diagnosed Date Nonalcoholic steatohepatitis (BAY) 11/30/2015 Personal history of other en docrine, nutritional and metabolic disease 11/15/2015 Cyst of ovary 09/19/2015 Essential (primary) hypertension 06/04/2012 Type 2 diabetes mellitus without complications 0 07/05/2011 Immunizations * HepB Unspecified formulation(Given 05/13/1999, 05/13/1999, 05/13/1999) Social History Tobacco Use Types Packs/Day Years Used Date Smoking Tobacco: Never Smokeless Tobacco: Never Alcohol Use Standard Drinks/Week Comments No 0 (1 standard drink = 0.6 oz pur e alcohol) Sex and Gender Information Value Date Recorded Sex Assigned at Not on file Gender Identity Not on file Sexual Orientation Not on file Procedures * DERMATOPATHOLOGY(Performed 01/02/2018) * PATHOLOGY TISSUE(Performed 11/15/2015) * PATHOLOGY REPORTS - HPF HISTORICAL(Performed 08/16/2011) * PATHOLOGY/GENETICS HISTORICAL-ONBASE(Performed 09/21/2009) * PATHOLOGY/GENETICS HISTORICAL-ONBASE(Performed 09/21/2009) * PATHOLOGY/GENETICS HISTORICAL-ONBASE(Performed 09/21/2009) Results * DERMATOPATHOLOGY (01/02/2018 12:00 AM CDT) Case Report Dermatopathology Report Case: [id number] Authorizing Provider: Jae Lewis MD Collected: 01/02/2018 12:00 AM Pathologist: Kell West MD Received: 01/06/2018 08:42 AM Specimen: Skin, left buttock 2:23 PM CDT DERMATOPATHOLOGY LABORATORY Final Diagnosis Specimen A. SKIN, left buttock: PSORIASIFORM DERMATITIS (L44.8) (see microscopic description and comment) 2:23 PM CDT DERMATOPATHOLOGY LABORATORY Clinical History Changing lesion. Check margins. 2:23 PM CDT DERMATOPATHOLOGY LABORATORY Gross Description Specimen A: Received is one formalin filled container labeled with the patient's name and designated left buttock. The specimen consists of a punch biopsy measuring [id number]. The margin is inked green. Jar 0. 2:23 PM CDT DERMATOPATHOLOGY LABORATORY Microscopic Description Specimen A. SKIN, [...] malignancy in the sections examined. 2:23 PM CDT DERMATOPATHOLOGY LABORATORY Disclaimer An external and internal positive and negative controls are appropriate for the histochemical, immunohistochemical and immunofluorescence stain(s) in this case (if any), except where stated explicitly. The performance characteristics of the stain(s) cited in this report were developed and its performance characteristic determined by the Dermatopathology Laboratory at [facility]. These tests need not be, and therefore are not, approved by the [place] Food and Drug Administration. The tests are used for clinical purposes. Billing Codes Specimen Charges Stain Charges 72489 1 89278 1 8 2:23 PM CDT DERMATOPATHOLOGY LABORATORY Embedded Images 8 2:23 PM CDT DERMATOPATHOLOGY LABORATORY Pathology/Cytolog y TISSUE SPECIMEN FROM SKIN / Unknown 01/02/2018 01/06/2018 8:42 AM CDT Jae Lewis MD LAB - PATHOLOGY/CYTO LOGY ORDERABLES DERMATOPATHOLOGY LABORATORY [facility] - Department of Dermatology [address] [place] [address], 5th Floor Lab [address] [phone] * PATHOLOGY TISSUE (11/15/2015 8:38 AM CDT) Surgical Pathology Tissue ACCESSION No: [id number] CLINICAL HISTORY: BAY. OPERATIVE PROCEDURE: Liver biopsy. FINAL DIAGNOSIS: LIVER, BIOPSY: - STEATOHEPATITIS, NAFLD ACTIVITY SCORE 6/8 (SEE COMMENT) - FIBROSIS: STAGE 2 COMMENT: NAFLD score (Steatosis 3, lobular inflammation 2, and hepatocellular ballooning 1) is based on BAY Clinical Research Network Scoring System for Nonalcoholic Fatty Liver Disease (Corin[place] DE et al, Hepatology 2005; 41: 1372-8151). GROSS DESCRIPTION: The specimen is received fixed in formalin in one container for gross and microscopic examination labeled with the patient's name, Hodan Haritha and liver biopsy , and consists of two soft, yellow-klein cores measuring 1.9 and 1.3 cm in length, and both with diameters of 0.1 cm. The specimen is submitted in toto in cassette A1. CM/edk MICROSCOPIC DESCRIPTION: Size of biopsy: Adequate Number of portal tracts: >10 Fragmentation: No Fibrosis: Stage 2 with perisinusoidal, portal and periportal fibrosis (Trichrome A1, Reticulin A1) Fibrous septa: Not identified Septa with curved contours: Not identified Large droplet steatosis (% of hepatocytes): 70 Ballooning of hepatocytes: Present, few Karen bodies: Present Portal inflammation: Mild, mixed with lymphoid cells and a few eosinophils and histiocytes Interface activity: Minimal Lobular necroinflammation: Present 2 foci/20x field Ducts: Present in normal number Duct injury: Not identified Ductular reaction: Present Cholestasis: Not identified Iron stain: Negative (Iron stain A1) Ground glass cells with routine stains: Not identified PASD for [id number] droplets: Not identified (PASD stain A1) JL The performance characteristics of all immunohistochemical and indirect immunofluorescence stains (if any) cited in this report were determined by the Histopathology Laboratory of [facility]. Some of these tests were developed by our own laboratory and have not been cleared or approved by the [place] Food and Drug Administration. The FDA does not require this test to go through premarket FDA review. These tests are used for clinical purposes. They should not be regarded as investigational or for research. This laboratory is certified under the Clinical Laboratory Improvement Amendments (CLIA) as qualified to perform high complexity clinical laboratory testing. This case has been personally reviewed and interpreted by the attending (teaching) pathologist. Final Diagnosis performed by Remington Ball MD. Electronically signed 11/22/2015 [facility] Other (qualifier value) 11/15/2015 8:38 AM CDT 11/15/2015 10:23 AM CDT Narrative [facility] - 11/22/2015 10:42 AM CDT PROBLEM LIST: Patient Active Problem List: BAY (nonalcoholic steatohepatitis) Hx of obesity Hypertension Type 2 diabetes Ovarian cyst PRE-OP DIAGNOSIS: BAY OPERATIVE PROCEDURE / FINDINGS: Procedure(s): LIVER BIOPSY POST-OP DIAGNOSIS: * No post-op diagnosis entered * Collection Date->11/15/15 Collection Time-> 8:38 AM Specimen A->Liver Hx of BAY Gualberto Hsieh MD LAB - PATH OLOGY/CYTOLOGY ORDERABLES [facility] * PATHOLOGY REPORTS - HPF HISTORICAL (08/16/2011 2:50 PM CDT) 08/16/2011 2:[address] [facility] - 08/16/2011 2:50 PM CDT Gualberto Hsieh MD LAB - PATH OLOGY/CYTOLOGY ORDERABLES Performing Organization Address [facility]/ZIP Co de Phone Number [facility] [address] * PATHOLOGY/GENETICS HISTORICAL-ONBASE (09/21/2009) Only the most recent of3 resultswithin the time period is included. 09/21/2009 Historical Provider LAB - CHEMISTRY O RDERABLES Performing Organization Address City/[facility]/ZIP Co de Phone Number [facility]
--- OUTSIDE RECORDS SUMMARY | 2024-07-01 07:26 | XMS_ITS | Referral Summary ---
Author Organization [facility] Address [address] [place] [address] Care Team Providers Care Tobacco Drummer Name Role Phone Unavailable Primary Care Provider Unavailabl e Source Comments [facility],non-owned Affiliates and Associated Physician Practices is amultiple site organization consisting of ambulatory clinics and hospital sitesin [place], [place], [place] and [place]. This disclosure is being madepursuant to the Care Everywhere program and may not contain all information available regarding this patient. Last updated 18.[facility] [employer] Active Problems Problem Noted Date Diagnosed Date [...] record) on 09/21/11, discussed w/Pt, seen by Sourcer and had an ultrasound that just showed a cyst Essential (primary) hypertension 06/04/2012 Type 2 diabetes mellitus without complications 0 07/05/2011 Overview (07/25/2018): Diagnosed 04/22 Immunizations Name Administration Dates Next Due HepB Unspecified formulation 05/13/1999,05/13/19 00,05/13/1999 Social History Tobacco Use Types Packs/Day Years Used Date Smoking Tobacco: Never Smokeless Tobacco: Never Alcohol Use Standard Drinks/Week Comments No 0 (1 standard drink = 0.6 oz pur e alcohol) Sex and Gender Information Value Date Recorded Sex Assigned at Not on file Gender Identity Not on file Sexual Orientation Not on file Plan of Treatment Not on file
== END 2024-07-01 07:25 | disposition home or self-care (01) ==
PROVIDERS: PCP Family Medicine; Visit Provider Nurse Practitioner
DX: K76.0 Fatty (change of) liver, not elsewhere classified (principal)
CPT/HCPCS: 76705

== ENCOUNTER 2024-08-06 08:49 | Outpatient (CLI) | payer OTHER, SELFPAY ==
--- OUTSIDE RECORDS SUMMARY | 2024-08-06 09:14 | XMS_ITS | Clinical Summary ---
Author Organization [facility] C Address [address] [place] [address] Care Team Providers Care Plant Science Professor Name Role Phone Naomi Toure NP Primary Care Provider [phone] Varinder Benton MD Unavailable [phone] Allergies No known active allergies Medications albuterol HFA (PROVENTIL HFA,VENTOLIN HFA,PROAIR HFA) 90 mcg/actuation inhaler Inhale 2 puffs every 6 (six) hours as needed for wheezing Active atorvastatin (LIPITOR) 20 mg tablet Take 20 mg by mouth daily Active carvediloL (COREG) 12.5 mg tablet Take 12.5 mg by mouth 2 (two) times a day with meals Active empagliflozin-me tformin (Synjardy) 5-1,000 mg tablet Take 1 tablet by mouth 2 (two) times a day Active exenatide microspheres (BYDUREON) 2 mg/0.65 mL pen injector Inject 2 mg under the skin every 7 days Mondays Active lisinopriL (PRINIVIL,ZESTRI L) 5 mg tablet Take 5 mg by mouth daily Active montelukast (SINGULAIR) 10 mg tablet Take 10 mg by mouth nightly Active omeprazole (PriLOSEC) 40 mg capsule Take 40 mg by mouth daily Active flash glucose sensor (FreeStyle Jessica 14 Day Sensor) kit 1 application every 14 (fourteen) days Active tiZANidine (ZANAFLEX) 4 mg tabletIndication s:Muscle Spasm Take 1 tablet (4 mg total) by mouth every 6 (six) hours as needed for muscle spasms 90 tablet 2 2 Active oxyCODONE (ROXICODONE) 5 mg immediate release tabletIndication s:Pain Take 1 tablet (5 mg total) by mouth every 8 (eight) hours as needed for pain 45 tablet 2 Active Additional Information Patient not taking.Reported on 01/17/2022 cyclobenzaprine (FLEXERIL) 5 mg tablet Take 5 mg by mouth 3 (three) times a day as needed for muscle spasms Active gabapentin (NEURONTIN) 600 mg tabletIndication s:Status post cervical spinal fusion Take 1 tablet (600 mg total) by mouth 3 (three) times a day 90 tablet 3 Active Active Problems Problem Noted Date Diagnosed Date Status post cervical spinal fusion 09/04/2021 Assessment & Plan (01/17/2022 11:21 AM CDT): Ms. Arriaga is clinically doing well after C4-5 ACDF and revision of prior hardware. She has no signs of radiculopathy or myelopathy. She does have some inherent left shoulder disease followed by Orthopedics. We will not set up a scheduled appointment, but I would be happy to see her back at any point on an as-needed basis. Assessment & Plan (10/18/2021 11:22 AM CDT): Ms. Arriaga is improved in regards to her myelopathy symptoms after C4-5 ACDF. She has symptoms in left upper shoulder proximal arm the seeing shoulder related, neck related she still has some posterior neck pain which we will follow over time and some occasional stumbling tripping we will allow her to return to work restrictions. I plan to see her back in 3 months with no new films at that time. Assessment & Plan (09/04/2021 12:40 PM CDT): PLAN: - Start physical therapy/aqua therapy/home exercise program - Renew medications: Increase gabapentin to 600 mg 3 times a day. Will request Dr. Benton to renew her oxycodone 5 mg 3 times a day. Patient has some Flexeril at home which she may try instead at the tizanidine. - discontinue [place] collar. - After 6 weeks, patient may resume NSAIDs, may increase activity as tolerated. 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 Benton in 6 weeks with Flexion/Extension Cervical spine films. Preop MRI CD return to the patient. 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 Arriaga presents with symptoms of cervical radiculopathy and myelopathy. Her MRI cervical spine will be reviewed with Dr. Benton to further formulate a plan of care. In the interim I will have the patient obtain a cervical spine x-ray flexion extension and AP view to rule out any instability. I will also have the patient obtain a left shoulder x-ray to rule out any other underlying pathology. Patient has been off work for previous surgery. Injury of brachial plexus 11/08/2015 Cervicalgia 10/13/2015 Left shoulder pain 10/13/2015 Assessment & Plan (10/18/2021 11:24 AM CDT): Ms. Arriaga has a primary complaint of left shoulder and proximal arm pain. 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 She has decreased strength in external rotation of her left shoulder. We will get an MRI the left shoulder to rule rotator cuff tear or other pathology. We will speak to phone about results and direct therapy based on the results. She may need formal a referral to physiatry based on results of the MRI. Chronic infection of sinus 03/03/2010 Chronic tonsillitis 03/01/2010 Surgical History Surgery Date Site/Laterality Comments TUBAL LIGATION 05/13/1990 - 05/12/1991 HYSTERECTOMY 05/13/2004 - 05/12/2005 HERNIA REPAIR 05/13/2008 - 05/12/2009 umbilical SINUS SURGERY 05/13/2009 - 05/12/2010 SPINAL FUSION C5-7 ACDF 2013 [place] KNEE SURGERY 05/13/2019 - 05/12/2020 Left menisectomy Medical History Medical History Date Comments Diabetes mellitus (HCC) Liver disease fatty liver Hypertension Hypercholesteremia Asthma Bronchitis Arthritis GERD (gastroesophageal reflux disease) Migraines Disorder of intervertebral disc at C4-C5 level w ith myelopathy Family History Medical History Relation Name Comments Arthritis Father Family history of arthritis - (Added by TW Conv) Diabetes Father Family history of diabetes mellitus - (Added by TW Conv) Heart disease Father Family history of cardiac disorder - (Added by TW Conv) Hypertension Father Family history of hypertension - (Added by TW Conv) Thrombosis Father Family history of thrombosis - (Added by TW Conv) Diabetes Mother Family history of diabetes mellitus - (Added by TW Conv) Heart disease Mother Family history of cardiac disorder - (Added by TW Conv) Hypertension Mother Family history of hypertension - (Added by TW Conv) Relation Name Status Comments Father Mother Social History Tobacco Use Types Packs/Day Years Used Date Smoking Tobacco: Never Smokeless Tobacco: Never Tobacco Cessation:Counseling Given: Not Answered AUDIT-C Answer Date Recorded Q1: How often do you have a drink containing alc ohol? Never 07/10/2021 Average Number of Drinks Not on file 022 Q3: How often do you have si x or more drinks on one occasion? 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 Not on file Not on file Obstetrics History Last Filed Vital Signs Vital Sign Reading Time Taken Comments Blood Pressure 137/97 01/17/2022 10:53 AM CDT Pulse 83 01/17/2022 10:53 AM CDT Temperature 36.7 C (98 F) 07/25/2021 8:39 AM CDT Respiratory Rate 16 07/25/2021 8:39 AM CDT Oxygen Saturation 100% 07/25/2021 8:39 AM CDT Inhaled Oxygen Concentration - - Weight 88.6 kg (195 lb 5.2 oz) 07/24/2021 8:41 A M CDT Height 177.8 cm (5' 10 ) 07/24/2021 8:41 AM CDT Body Mass Index 28.03 07/24/2021 8:41 AM CDT Plan of Treatment Health Maintenance Due Date Last Done Comments Breast Cancer Screening-Mammogram 1967 Colon Cancer Screening-Colonoscopy 1967 Hepatitis C Screening 1967 Regular Well Visit/Exam 18-64 1985 Zoster Vaccine (1 of 2) 2017 Depression Screening 05/22/2022 05/22/2021, 05/22/2021 Covid-19 Vaccine ( - 2023-2 5 season) 2024 02/09/2021, 05/23/2020, 05/02/2020 Influenza Vaccine (#1) 2024 02/09/2021 DTaP/Tdap/Td Vaccine (2 - Td or Tdap) 12/27/2028 12/27/2018 Hepatitis B Screening Completed 05/13/1999 Pneumococcal vaccine <65 Aged Out No longer eligible based on patient's age to complete this topic Medical Devices Implanted Type Area Log Cooker Device Identifier Shelf Expiration Date Model / Serial / Lot Allograft Bone Putty 2.5cc 700-025 - [id number] Implanted:Qty: 1 on 07/24/2021 by Varinder Benton MD at [facility] N/A: Spine Cervical Cer[employer] Inc [id number] 02/10/2024 700-025 / / [id number] C[employer] 3d Cervical [id number] 7 Deg - [id number] Implanted:Qty: 1 on 07/24/2021 by Varinder Benton MD at [facility] N/A: Spine Cervical Core Link [id number] 04/19/2026 [id number] / / [id number] Core Link [id number] Anodyne 12mm Level 1 Spine Cervical Anterior Plate Bone - [id number] Implanted:Qty: 1 on 07/24/2021 by Varinder Benton MD at [facility] N/A: Spine Cervical Core Link / / Core Link Anodyne 4mm 14mm Variable Angle Self Tap Spine Cervical Screw - [id number] Implanted:Qty: 4 on 07/24/2021 by Varinder Benton MD at [facility] N/A: Spine Cervical Core Link / / Insurance [facility] CHOICE PLUS [facility] CHOICE PLUS [facility] CHOICE PLUS Advance Directives For more information, please contact: [phone] * Full Code (Latest Code Status on File) Date Activated Date Inactivated Comments 07/24/2021 4:17 PM 07/25/2021 5:02 PM Care Teams Plant Science Professor Relationship Specialty Start Date End Date Naomi Toure NP [address] [place] [address] PCP - General Nurse Practitioner 04/27/21 Varinder Benton MD [address] [place] [address] Consulting Physician Neurosurgery 07/24/21
--- OUTSIDE RECORDS SUMMARY | 2024-08-06 09:14 | XMS_ITS | Encounter Summary ---
Author Organization [facility] Address [address] [place] [address] Care Team Providers Care Geographic Information Scientist Name Role Phone Unavailable Primary Care Provider Unavailabl e Encounter Details Date Type Department Care Team (Late st Contact Info) Description 01/06/2018 Lab Requisition [facility] [address] [place] [id number] Jae Lewis MD [address] [place] [address] Social History Tobacco Use Types [...] AM CDT) Case Report Dermatopathology Report Case: [id number] Authorizing Provider: Jae Lewis MD Collected: 01/02/2018 12:00 AM Pathologist: Kell West MD Received: 01/06/2018 08:42 AM Specimen: Skin, left buttock 2:23 PM [facility] Final Diagnosis Specimen A. SKIN, left buttock: PSORIASIFORM DERMATITIS (L44.8) (see microscopic description and comment) 2:23 PM [facility] Clinical History Changing lesion. Check margins. 2:23 PM [facility] Gross Description Specimen A: Received is one formalin filled container labeled with the patient's name and designated left buttock. The specimen consists of a punch biopsy measuring [id number]. The margin is inked green. Jar 0. 2:23 PM [facility] Microscopic Description Specimen A. SKIN, [...] malignancy in the sections examined. 2:23 PM [facility] Disclaimer An external and internal positive and negative controls are appropriate for the histochemical, immunohistochemical and immunofluorescence stain(s) in this case (if any), except where stated explicitly. The performance characteristics of the stain(s) cited in this report were developed and its performance characteristic determined by the Dermatopathology Laboratory at [facility]. These tests need not be, and therefore are not, approved by the [place] Food and Drug Administration. The tests are used for clinical purposes. Billing Codes Specimen Charges Stain Charges 89064 1 02949 1 2:23 PM T DERMATOPATHOLOGY LABORATORY Embedded Images 2:23 PM [facility] Pathology/Cytolog y TISSUE SPECIMEN FROM SKIN / Unknown 01/02/2018 01/06/2018 8:42 AM CDT Jae Lewis MD LAB - PATHOLOGY/CYTO LOGY ORDERABLES DERMATOPATHOLOGY LABORATORY [facility] - Department of Dermatology [address] [place] [address], 5th Floor Lab [address] [phone] documented in this encounter Visit Diagnoses Not on filedocumented in this encounter
--- OUTSIDE RECORDS SUMMARY | 2024-08-06 09:14 | XMS_ITS | Clinical Summary ---
Author Organization [facility] [employer] Address [address] [place] [address] Care Team Providers Care Bobbin Cleaner Hand Name Role Phone Unavailable Primary Care Provider Unavailabl e Source Comments [facility],non-owned Affiliates and Associated Physician Practices is amultiple site organization consisting of ambulatory clinics and hospital sitesin [place], [place], [place] and [place]. This disclosure is being madepursuant to the Care Everywhere program and may not contain all information available regarding this patient. Last updated 18.[facility] [employer] Active Problems Problem Noted Date Diagnosed Date [...] record) on 09/21/11, discussed w/Pt, seen by Solutions Executive Security and had an ultrasound that just showed [...] complete this topic MENINGOCOCCAL (Group B) VACCINE SHARED DECISION-MAKING Aged Out No longer eligible based on patient's age to complete this topic MENINGOCOCCAL GROUPS A/C/Y/W VACCINE Aged Out No longer eligible b ased on patient's age to complete this topic MELISSA MG Personal/Family Spouse [address] [phone] MELISSA MG Personal/Family Spouse [address] [phone] BART,MELISSA Personal/Family Spouse [address] [phone]
--- OUTSIDE RECORDS SUMMARY | 2024-08-06 09:14 | XMS_ITS | Referral Summary ---
Author Organization [facility] C Address [address] [place] [address] Care Team Providers Care Professor Of Environmental Studies Name Role Phone Naomi Toure NP Primary Care Provider [phone] Varinder Benton MD Unavailable [phone] Allergies No known active allergies Medications [...] try instead at the tizanidine. - discontinue [place] collar. - After 6 weeks, patient may [...] (06/05/2021): Added automatically from request for surgery [id number] Cervical myelopathy with cervical radiculopathy 05/22/2021 Assessment & Plan (05/22/2021 2:11 PM VALVER): Ms. 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 N/A: Spine Cervical [employer] Inc [id number] 02/10/2024- / / [id number] C[employer] 3d Cervical 14.8j13o4pd 7 Deg - [id number] Implanted:Qty: 1 on 07/24/2021 by Varinder Benton MD at [facility] N/A: Spine Cervical Core Link [id number] 04/19/2026 [id number] 708 / / [id number] Core Link Anodyne 12mm Level 1 Spine Cervical Anterior Plate Bone - [id number] Implanted:Qty: 1 on 07/24/2021 by Varinder Benton MD at [facility] N/A: Spine Cervical Core Link / / Core Link Anodyne 4mm 14mm Variable Angle Self Tap Spine Cervical Screw - [id number] Implanted:Qty: 4 on 07/24/2021 by Varinder Benton MD at [facility] N/A: Spine Cervical Core Link / / Insurance [facility] CHO[facility] H[facility]/PPO Address: [address] [address] [place] [address] [facility] H[facility]/PPO Address: [address] [address] [place] [address] [facility] H[facility]/PPO Address: [address] [address] [facility] CHOICE PLUS [facility] HMO/PPO Address: [place] [address] [facility] HMO/PPO Address: [address] [address] [place] [address] [facility] CHOICE PLUS [facility] HMO/PPO Address: [address] [address] [place] [address] Advance Directives For more information, please contact: [phone] * Full Code (Latest Code Status on File) Date Activated Date Inactivated Comments 07/24/2021 4:17 PM 07/25/2021 5:02 PM Care Teams Professor Of Environmental Studies Relationship Specialty Start Date End Date Naomi Toure NP [address] [place] [address] PCP - General Nurse Practitioner 04/27/21 Varinder Benton MD [address] [place] [address] Consulting Physician Neurosurgery 07/24/21
[2024-08-06 19:26] LABS: Hematocrit 42.2 % (37.0-47.0); Hemoglobin 13.5 g/dL (12.0-15.0); Mean Corpuscular Hemoglobin 28.9 pg (26-34); Mean Corpuscular Volume 90.4 fl (80-100); Mean Platelet Volume 9.7 fl (7.4-10.4); Platelet Count Result 221 k/mm3 (150-375); Red Blood Count 4.67 M/mm3 (4.2-5.4); Red Cell Distribution Width 13.7 % (11.5-14.5)
[2024-08-06 19:36] LABS: Prothrombin Time 13.2 Seconds (11.1-14.7)
[2024-08-06 19:52] LABS: Alanine Aminotransferase 124 U/L (6-35); Albumin Level 4.6 g/dL (3.5-5.1); Alkaline Phosphatase 86 U/L (38-126); Anion Gap 10 mmol/L (4-12); Aspartate Amino Transferase 83 U/L (14-36); Bilirubin,Total 0.7 mg/dL (0.2-1.3); Blood Urea Nitrogen 17 mg/dL (7-17); Calcium 10.1 mg/dL (8.4-10.2); Carbon Dioxide 29 mmol/L (22-30); Chloride 100 mmol/L (98-107); Cholesterol 150 mg/dL (0-200); Estimated Glomerular Filt Rate > 60; Glucose 103 mg/dL (65-110); HDL Direct 30 mg/dL; Potassium 4.1 mmol/L (3.4-5.0); Sodium 139 mmol/L (137-145); Triglycerides 173 mg/dL (<150)
[2024-08-06 20:04] LABS: LDL Cholesterol Direct 89 mg/dL
[2024-08-06 20:21] LABS: Total Triiodothyronine (T3) 1.15 NG/ML (0.97-1.69)
[2024-08-06 20:36] LABS: Creatinine Urine 84.1 mg/dL
[2024-08-06 20:43] LABS: MALB Creatinine Ratio 12.6 mg/g (0-30); Microalbumin Urine Random 10.6 mg/L (0-16.7)
[2024-08-06 20:44] LABS: Free T4 Free Thyroxine 1.04 ng/dL (0.78-2.19)
== END 2024-08-06 08:50 | disposition home or self-care (01) ==
PROVIDERS: Nurse Practitioner Family; Visit Provider Nurse Practitioner
DX: E11.65 Type 2 diabetes mellitus with hyperglycemia (principal); R74.8 Abnormal levels of other serum enzymes; K76.9 Liver disease, unspecified; K75.81 Nonalcoholic steatohepatitis (NASH)
CPT/HCPCS: 36415; 80053; 80061; 82043; 84439; 84443; 84480; 85027; 85610

== ENCOUNTER 2024-09-09 07:07 | Outpatient (CLI) | payer BC, OTHER, SELFPAY ==
--- OUTSIDE RECORDS SUMMARY | 2024-09-09 07:12 | XMS_ITS | Referral Summary ---
Author Organization [facility] C Address [address] [place] [address] Care Team Providers Care Stone Engraver Name Role Phone Naomi Toure NP Primary Care Provider [phone] Varinder Benton MD Unavailable [phone] Allergies No known active allergies Medications [...] try instead at the tizanidine. - discontinue [place] collar. - After 6 weeks, patient may [...] (06/05/2021): Added automatically from request for surgery [id number] Cervical myelopathy with cervical radiculopathy 05/22/2021 Assessment & Plan (05/22/2021 2:11 PM PALS SPECIALIST): Ms. Arriaga presents with symptoms of cervical [...] on file Legal Sex Female 7:15 PM PALS SPECIALIST Gender Identity Female 05/15/2021 5:19 PM PALS SPECIALIST Sexual Orientation Straight 05/15/2021 5: 20 PM PALS SPECIALIST Occupation Industry Job Start Date Job End [...] on file Medical Devices Implanted Type Area Sash Installer Device Identifier Shelf Expiration Date Model / Serial / Lot Allograft Bone Putty 2.5cc - [id number] Implanted:Qty: 1 on 07/24/2021 by Varinder Benton MD at [facility] N/A: Spine Cervical Cer[employer] Inc [id number] 02/10/2024- / / [id number] C[employer] 3d Cervical 14.6w66g7if 7 Deg - [id number] Implanted:Qty: 1 on 07/24/2021 by Varinder Benton MD at [facility] N/A: Spine Cervical Core Link [id number] 04/19/2026 [id number] / / [id number] Core Link Anodyne 12mm Level 1 Spine Cervical Anterior Plate Bone - [id number] Implanted:Qty: 1 on 07/24/2021 by Varinder Benton MD at [facility] N/A: Spine Cervical Core Link / / Core Link Anodyne 4mm 14mm Variable Angle Self Tap Spine Cervical Screw - [id number] Implanted:Qty: 4 on 07/24/2021 by Varinder Benton MD at [facility] N/A: Spine Cervical Core Link / / Insurance [facility] CHOICE PLUS [facility] HMO/PPO Address: [address] [address] [place] [address] [facility] H[facility]/PPO Address: [address] [address] [place] [address] [facility] H[facility]/PPO Address: [address] [address] [facility] CHOICE PLUS [facility] HMO/PPO Address: [place] [address] [facility] H[facility]/PPO Address: [address] [address] [place] [address] [facility] CHOICE PLUS [facility] HMO/PPO Address: [address] [address] [place] [address] Advance Directives For more information, please contact: [phone] * Full Code (Latest Code Status on File) Date Activated Date Inactivated Comments 07/24/2021 4:17 PM 07/25/2021 5:02 PM Care Teams Stone Engraver Relationship Specialty Start Date End Date Naomi Toure NP [address] [place] [place] [address] PCP - General Nurse Practitioner 04/27/21 Varinder Benton MD [address] [place] [place] [address] Consulting Physician Neurosurgery 07/24/21
--- OUTSIDE RECORDS SUMMARY | 2024-09-09 07:12 | XMS_ITS | Clinical Summary ---
Author Organization [facility] C Address [address] [place] [address] Care Team Providers Care Hide And Skin Fleshing Machine Operator Name Role Phone Naomi Toure NP Primary Care Provider [phone] Varinder Benton MD Unavailable [phone] Allergies No known active allergies Medications [...] try instead at the tizanidine. - discontinue [place] collar. - After 6 weeks, patient may [...] (06/05/2021): Added automatically from request for surgery [id number] Cervical myelopathy with cervical radiculopathy 05/22/2021 Assessment & Plan (05/22/2021 2:11 PM MAGNETIC TAPE WINDER): Ms. Arriaga presents with symptoms of cervical [...] on file Legal Sex Female 7:15 PM MAGNETIC TAPE WINDER Gender Identity Female 05/15/2021 5:19 PM MAGNETIC TAPE WINDER Sexual Orientation Straight 05/15/2021 5: 20 PM MAGNETIC TAPE WINDER Occupation Industry Job Start Date Job End [...] Depression Screening 05/22/2022 05/22/2021, 05/22/2021 Covid-19 Vaccine (2023-2 5 season) 2024 02/09/2021, 05/23/2020, 05/02/2020 Influenza Vaccine (Season Ended) 2025 02/09/2021 DTaP/Tdap/Td Vaccine (2 - Td or Tdap) 12/27/2028 12/27/2018 Hepatitis B Screening Completed 05/13/1999 Pneumococcal vaccine <65 Aged Out No longer eligible based on patient's age to complete this topic Medical Devices Implanted Type Area Generation Technician Device Identifier Shelf Expiration Date Model / Serial / Lot Allograft Bone Putty 2.5cc 700-025 - [id number] Implanted:Qty: 1 on 07/24/2021 by Varinder Benton MD at [facility] N/A: Spine Cervical Cer[employer] Inc [id number] 02/10/2024 700-025 / / [id number] C[employer] 3d Cervical 14.4u59e4fv 7 Deg - [id number] Implanted:Qty: 1 on 07/24/2021 by Varinder Benton MD at [facility] N/A: Spine Cervical Core Link [id number] 04/19/2026 [id number] 708 / / [id number] Core Link [id number] Anodyne 12mm Level 1 Spine Cervical Anterior Plate Bone - [id number] Implanted:Qty: 1 on 07/24/2021 by Varinder Benton MD at [facility] N/A: Spine Cervical Core Link / / Core Link Anodyne 4mm 14mm Variable Angle Self Tap Spine Cervical Screw - [id number] Implanted:Qty: 4 on 07/24/2021 by Varinder Benton MD at [facility] N/A: Spine Cervical Core Link / / Insurance [facility] CHOICE PLUS [facility] CHOICE PLUS [facility] CHOICE PLUS Advance Directives For more information, please contact: [phone] * Full Code (Latest Code Status on File) Date Activated Date Inactivated Comments 07/24/2021 4:17 PM 07/25/2021 5:02 PM Care Teams Hide And Skin Fleshing Machine Operator Relationship Specialty Start Date End Date Naomi Toure NP [address] [place] [address] PCP - General Nurse Practitioner 04/27/21 Varinder Benton MD [address] [place] [address] Consulting Physician Neurosurgery 07/24/21
--- OUTSIDE RECORDS SUMMARY | 2024-09-09 07:12 | XMS_ITS | Clinical Summary ---
Author Organization [facility] [employer] Address [address] [place] [address] Care Team Providers Care Senior Accounts Payable Specialist Name Role Phone Unavailable Primary Care Provider Unavailabl e Source Comments [facility],non-owned Affiliates and Associated Physician Practices is amultiple site organization consisting of ambulatory clinics and hospital sitesin [place], [place], [place] and [place]. This disclosure is being madepursuant to the Care Everywhere program and may not contain all information available regarding this patient. Last updated 18.[facility] [employer] Active Problems Problem Noted Date Diagnosed Date [...] record) on 09/21/11, discussed w/Pt, seen by Purchasing Clerk and had an ultrasound that just showed a cyst Essential (primary) hypertension 06/04/2012 Type 2 diabetes mellitus without complications 0 07/05/2011 Overview (08/12/2024): Diagnosed 04/22 IMO 08/12/2024 Immunizations Immunization Administration Dates Next Due HepB Unspecified formulation [...] drink = 0.6 oz pur e alcohol) Comments Unknown Sex and Gender Information Value Date Recorded Sex Assigned at Not on file Legal Sex Female 5:39 PM WETLAND SCIENTIST Gender Identity Not on file Sexual Orientation [...] 50+ (1 of 2 - PCV) 1986 HEPATITIS B VACCINE (2 of 3 - 19+ 3-dose series) 06/10/1999 05/13/1999, 05/13/1999, 05/13/1999 ZOSTER VACCINE (1 of 2) 2017 COVID-19 VACCINE (1 - 2023-2 5 season) 2024 DEPRESSION SCREENING 05/13/2024 INFLUENZA VACCINE (Season Ended) 2025 HIB VACCINE Aged Out No longer eligi [...] on patient's age to complete this topic [place] [address] [place] [address] HEALTH CARE [facility] UNITED HE[employer] CARE [facility] [facility]
--- OUTSIDE RECORDS SUMMARY | 2024-09-09 07:12 | XMS_ITS | Encounter Summary ---
Author Organization [facility] Address [address] [facility] [place] [address] Care Team Providers Care Architecture Internship Name Role Phone Unavailable Primary Care Provider Unavailabl e Encounter Details Date Type Department Care Team (Late st Contact Info) Description 01/06/2018 Lab Requisition [facility] [address] [facility] [place] [phone] Jae Lewis MD [address] [place] [place] [address] Social History Tobacco Use Types Packs/Day Years Used Date Smoking Tobacco: Never Smokeless Tobacco: Never Alcohol Use Standard Drinks/Week Comments No 0 (1 standard drink = 0.6 oz pur e alcohol) Comments Unknown Sex and Gender Information Value Date Recorded Sex Assigned at Not on file 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 Gender Identity Not on file Sexual Orientation Not on file documented as of this encounter Plan of Treatment Not on file documented as of this encounter Procedures Procedure Name Priority Date/Time Associated Diagnosis Comments DERMATOPATHOLOGY Routine 01/02/2018 12:0 0 AM CDT documented in this encounter Results * DERMATOPATHOLOGY (01/02/2018 12:00 AM CDT) Case Report Dermatopathology Report Case: [id number] Authorizing Provider: Jae Lewis MD Collected: 01/02/2018 12:00 AM Pathologist: Kell West MD Received: 01/06/2018 08:42 AM Specimen: Skin, left buttock 2:23 PM T DERMATOPATHOLOGY LABORATORY Final Diagnosis Specimen A. SKIN, left buttock: PSORIASIFORM DERMATITIS (L44.8) (see microscopic description and comment) 2:23 PM T DERMATOPATHOLOGY LABORATORY Clinical History Changing lesion. Check margins. 2:23 PM T DERMATOPATHOLOGY LABORATORY Gross Description Specimen A: Received is one formalin filled container labeled with the patient's name and designated left buttock. The specimen consists of a punch biopsy measuring [id number]. The margin is inked green. Jar 0. 2:23 PM [facility] DERMATOPATHOLOGY LABORATORY Microscopic Description Specimen A. SKIN, [...] malignancy in the sections examined. 2:23 PM [facility] DERMATOPATHOLOGY LABORATORY Disclaimer An external and internal positive and negative controls are appropriate for the histochemical, immunohistochemical and immunofluorescence stain(s) in this case (if any), except where stated explicitly. The performance characteristics of the stain(s) cited in this report were developed and its performance characteristic determined by the Dermatopathology Laboratory at [facility]. These tests need not be, and therefore are not, approved by the [place] Food and Drug Administration. The tests are used for clinical purposes. Billing Codes Specimen Charges Stain Charges 19516 1 48021 1 2:23 PM CDT DERMATOPATHOLOGY LABORATORY Embedded Images 2:23 PM T DERMATOPATHOLOGY LABORATORY Pathology/Cytolog y TISSUE SPECIMEN FROM SKIN / Unknown 01/02/2018 01/06/2018 8:42 AM CDT us Jaeelisabeth Leiws MD LAB - PATHOLOGY/CYTOLOGY ORDE ESSENCE Final Result DERMATOPATHOLOGY LABORATORY [facility] - Department of Dermatology [address] [place] [address], 5th Floor Lab [address] [phone] documented in this encounter Visit Diagnoses Not on filedocumented in this encounter
[2024-09-09 07:58] LABS: Hematocrit 41.7 % (37.0-47.0); Hemoglobin 13.1 g/dL (12.0-15.0); Mean Corpuscular HGB Conc 31.4 g/dl (32-36); Mean Corpuscular Hemoglobin 28.5 pg (26-34); Mean Corpuscular Volume 90.7 fl (80-100); Mean Platelet Volume 9.3 fl (7.4-10.4); Platelet Count Result 180 k/mm3 (150-375); Red Cell Distribution Width 13.3 % (11.5-14.5)
[2024-09-09 08:06] LABS: Alanine Aminotransferase 79 U/L (6-35); Albumin Level 4.2 g/dL (3.5-5.1); Alkaline Phosphatase 72 U/L (38-126); Anion Gap 3 mmol/L (4-12); Aspartate Amino Transferase 41 U/L (14-36); Bilirubin,Total 0.4 mg/dL (0.2-1.3); Blood Urea Nitrogen 14 mg/dL (7-17); Calcium 9.4 mg/dL (8.4-10.2); Carbon Dioxide 32 mmol/L (22-30); Chloride 103 mmol/L (98-107); Estimated Glomerular Filt Rate > 60; Glucose 147 mg/dL (65-110); Potassium 4.3 mmol/L (3.4-5.0); Sodium 138 mmol/L (137-145)
== END 2024-09-09 07:08 | disposition home or self-care (01) ==
LOC: ANHLAB 07:10
PROVIDERS: PCP Family Medicine; Visit Provider Nurse Practitioner
DX: K75.81 Nonalcoholic steatohepatitis (NASH) (principal)
CPT/HCPCS: 36415; 80048; 80076; 85027

== ENCOUNTER 2024-10-18 08:11 | Emergency (ER) | payer OTHER, BC, SELFPAY ==
--- NOTE | 2024-10-18 08:16 | ED_ITS ---
HPI - URI/Sore Throat General Chief Complaint: Ear Stated Complaint: Sinus/Ear Irritation Time Seen by Provider: 10/18/24 08:15 Source: patient Mode of arrival: ambulatory Limitations: no limitations History of Present Illness HPI Narrative: Patient is a 59-year-old female presents with sinus pressure, cough, right ear pain, and nasal drainage. Sinus pressure reported for 8 days and cough 3 days ago with yellow sputum. She also reports sore throat, nausea, and decreased appetite. Reported vomiting this morning with her lisinopril and carvedilol; no blood or bile. She flushed her ear with hydrogen peroxide yesterday an noted clear drainage this am. + chills and tactile fever; took Tylenol 4 hours ago. Took Sudafed yesterday around 3:30pm. Also reports a history of asthma used her inhaler once this past week. Denies history of smoking or vaping. Denies any chest pain, shortness of breath, abdominal pain, or diarrhea. Decrease appetite, reports she could be drinking more fluids, good urine output. Denies ill contacts. Related Data Home Medications ?Medication ?Instructions ?Recorded ?Confirmed ?Last Taken ?Type omega 9-ntu-lov-fish oil 1,000 mg 1 cap PO DAILY 09/14/22 10/07/24 08/20/23 History (120 mg-180 mg) capsule (Fish Oil) Allergies Allergy/AdvReac Type Severity Reaction Status Date / Time No Known Allergies Allergy Verified 10/18/24 08:25 Review of Systems Review of Systems: All systems reviewed & are unremarkable except as noted in HPI and below Constitutional: Constitutional: Reports chills, Denies fatigue, Reports fever(s) (tactile), Denies headache(s), Reports malaise, Reports poor appetite and Denies weakness Eyes: Eyes: Denies blurry vision, Denies itchy eyes and Denies loss of vision ENT: Reports otalgia (right), Denies headache(s), Reports nasal congestion, Reports sinus pain and Reports sore throat Cardiovascular: Cardiovascular: Denies chest pain, Denies irregular heart rhythm and Denies dyspnea Respiratory: Respiratory: Reports cough and Denies dyspnea Gastrointestinal: Gastrointestinal: Denies abdominal pain, Denies diarrhea, Reports nausea, Reports vomiting and Denies hematemesis Musculoskeletal: Musculoskeletal: Denies back pain, Denies myalgias and Denies arthralgias Integumentary/Breasts: Skin/Breast: Denies pruritus and Denies rash Neurologic: Denies headache(s), Denies loss of vision and Denies weakness Psychiatric: Psychiatric: Reports no additional psychiatric complaints Endocrine: Endocrine: Denies fatigue Allergic/Immunologic: Allergic/Immunologic: Denies itchy eyes PMFSH Past Medical History Medical History Bloating Gastric bezoar Nausea Obesity BAY (nonalcoholic steatohepatitis) Dysphonia Abnormal MRI, knee BMI 27.0-27.9,adult Cough Orthopedic aftercare Cervicalgia Elevated liver enzymes Liver disease Low vitamin D level Mixed hyperlipidemia Type 2 diabetes mellitus with hyperglycemia Surgical History Surgical History History of meniscectomy of left knee (~2019) History of cervical discectomy History of umbilical hernia repair History of hysterectomy History of tubal ligation Family History Family History Grandparent Family history of malignant neoplasm Family history of heart disease in male family member before age 55 Diabetes mellitus Father Diabetes mellitus Liver disease Heart disease Hyperlipemia Hypertension Mother Heart disease Diabetes mellitus COVID-19 Hypertension Sibling Cerebrovascular accident Diabetes mellitus Hypertension Hyperlipemia Social History Social History Smoking status: Never smoker Second hand tobacco smoke exposure: Yes Alcohol intake: never Substance use: never Substance use type: does not use Do You Feel Safe in your Home?: Yes Lack of Transportation: No Lack of Food: Never True Current Housing: I Have Housing Concerned About Future Housing: No Difficulty Paying Gas/Electric Bills: No Difficulty Paying for Meds: No Currently Unemployed: No Education: Trade/Vocational Certificate Difficulty w/ Childcare or Family Care: No Living arrangements: with family Occupation/Education: occupation Additional occupation/education comments: PT Gender identity (if verbalized by the patient): Female Spiritual care concerns: No Comments At time of signature, agree with nursing past medical, surgical, social and family history. There is no relevant family history pertinent to the presenting complaint. Exam Const: General: cooperative, healthy appearing, comfortable, no acute distress, tired appearing and well nourished Nutritional Appearance: well nourished Orientation/consciousness: patient oriented x3 Limitations: no limitations HENMT: Head: normal to inspection, normocephalic and atraumatic Ears: hearing grossly normal bilaterally, external ears normal, TM normal on the left, EAC's normal, no periauricular adenopathy and TM abnormal bulging on the right and erythematous on the right Face/Nose/Sinus: Normal external nose present, Abnormal mucous membranes and turbinates present erythematous bilateral and diffuse, Nasal discharge present, normal facial exam, sinuses nontender and face symmetric Face and sinus: normal facial exam, face symmetric and sinus tenderness frontal and maxillary Mouth: Yes Normal oral and palatal mucosa present, Yes lip normal, Yes tongue normal, Yes Normal salivary glands and ducts present, Yes oropharynx normal and Yes moist mucous membranes Teeth and gingiva: dentition normal Throat: posterior oropharynx normal, tonsils normal, uvula midline and posterior oropharynx abnormal erythema (mild) Eyes: General: appearance normal, both eyes and all related structures Alignment and Position: alignment normal and position normal Periorbital: periorbital findings normal Eyelids: eyelids normal Pupils: Equal, round and reactive pupils present Neck: Neck: normal visual inspection, full ROM, no lymphadenopathy and supple Chest: Chest palpation & inspection: normal inspection of the chest and normal palpation of entire chest wall Resp: Effort & Inspection: normal respiratory effort and able to speak in complete sentences Auscultation: clear to auscultation bilaterally, no crackles, no rales, rhonchi left lower and right lower and no wheezes Cardio: Rate: regular rate Rhythm: regular rhythm Heart sounds: S1 normal heart sound present and S2 normal heart sound present GI: Inspection: normal to inspection Skin: General skin exam: normal color and no rashes or lesions noted Neuro: General: patient oriented x3 and moves all extremities Cranial nerves: Yes Equal, round and reactive pupils present Speech: normal speech Gait exam (Neuro): Normal gait present Extrem: General: normal to inspection, full ROM and no edema Psych: Appearance: grossly normal and well kempt Mental Status: mental status grossly normal Speech and movement: Normal speech and movement present Affect: normal affect Attitude: cooperative Thought process: Normal thought process present Course Course Emergency Course: Discharge instructions reviewed with patient, as well as provided in writing per nursing staff. The instructions also include specific and strict return/GO TO THE ER as well as f/u information. All questions have been answered, and the patient deny any further questions with discharge and discharge plan. Portions of this record may have been created with voice recognition software Level of Care: Express Care Visit Vital Signs Vital signs: Reviewed MDM - URI/Sore Throat MDM Narrative Medical decision making narrative: Discussed switching the Coricidin instead of Sudefed based on blood pressures Pt well hydrated appearing, in no respiratory distress, hemodynamically stable. Recommend supportive care. The patient is stable at time of discharge the clinical impression was discussed and the patient was given the opportunity to ask questions, which were addressed as completely as possible given the information available at present. Anticipatory guidance and return to care precautions were discussed and the importance of primary care follow-up was stressed and encouraged. The patient voiced understanding of the plan, indications to return, and the need for follow-up. Exam findings show no acute concerns or changes Patient is appropriate for outpatient treatment and follow-up. Differential diagnosis considered: Gonzales virus, strep pharyngitis, allergic rhinitis, upper respiratory tract infection, sinusitis, rhinosinusitis, nasopharyngitis. viral pharyngitis, otitis media, otitis externa, otitis eff usion, foreign body, cerumen impaction, viral syndrome, and influenza.? Medical Records Attestation: I reviewed the patient's medical records. Discharge Plan Discharge Clinical Impression: Sinusitis Qualifiers: Sinusitis location: frontal Chronicity: acute Recurrence: non-recurrent Qualified Code(s): J01.10 - Acute frontal sinusitis, unspecified Otitis media Qualifiers: Otitis media type: suppurative Chronicity: acute Laterality: right Recurrence: non-recurrent Spontaneous tympanic membrane rupture: without spontaneous rupture Qualified Code(s): H66.001 - Acute suppurative otitis media without spontaneous rupture of ear drum, right ear Cough Qualifiers: Cough type: acute Qualified Code(s): R05.1 - Acute cough Patient Disposition: Home Condition: Stable Instructions: Upper Respiratory Infection (ED) Additional Instructions: Take antibiotic as prescribed. Take steroids in the morning with food. Use Tessalon Perles as needed for cough. Use zofran as needed for nausea Other symptomatic treatments include: -Alternate Tylenol and Motrin per package directions for fever or pain: Tylenol 650-1000mg by mouth every 4-6 hours. Do not exceed 4000mg in 24 hours. Advil (Ibuprofen) 600 mg by mouth every 6 hours. Do not exceed 2400mg in 24 hours. 8 AM: Tylenol 11 AM: Ibuprofen 2 PM: Tylenol 5 PM: Ibuprofen 8 PM: Tylenol 11 PM: Ibuprofen 2 AM: Tylenol 5 AM: Ibuprofen -Antihistamine medication such as Benadryl at night and Zyrtec/Claritin/Edelmira during the day can help improve symptoms. -Use Flonase twice a day for 5 days then daily to help reduce the inflammation and dry up your sinuses. -You can also use Coricidin. Be sure to drink plenty of water with these medications at least 8 ounces with every dose and it is important to drink 8 to 10 glasses of water per day. Water is a natural decongestant -Eat and drink things that are easy to swallow, like tea or soup, or popsicles. -Oral rinses such as: Salt water gargles and/or may use topical anesthetic (eg. Chloraseptic spray) or lozenges to relieve dryness or throat pain). -Frequent hand washing or hand experience specialist is one of the best ways to prevent spread of infection. -Using a vaporizer or humidifier at night will also help thin secretions and help with coughing up phlegm. Call your Primary Care Doctor and make a follow-up appointment in 3 days. If your cough worsens, you develop a fever greater than 103, you develop shaking chills, a fast heartbeat, trouble breathing and/or feel you are are breathing much faster than usual, call your Primary Care Doctor or go to the ER. Your blood pressure was elevated above 120/80 today at Urgent Care. This puts you above the threshold for follow up visit with a primary care provider. High blood pressure does not usually cause any symptoms, however it may lead to kidney failure, stroke, heart disease just to name a few if untreated . Many people are anxious when seeing a provider or nurse. As a result, you are not diagnosed with hypertension at this time unless your blood pressure is persistently high at two office visits at least one week apart. Some things that can help lower blood pressure are lifestyle modifications, such as light exercise, decreased salt in diet, and weight loss. It is important to follow up with a PCP about this within 1 week. Patient Language: [place] Citizen Prescriptions: New prednisone 20 mg tablet 40 mg PO DAILY 5 Days Qty: 10 0RF benzonatate 100 mg capsule 100 mg PO BID PRN (Reason: cough) Qty: 14 0RF fluticasone propionate [Flonase Allergy Relief] 50 mcg/actuation spray,suspension 1 spray intranasal DAILY Qty: 16 0RF Rx Instructions: administer into each nostril amoxicillin-pot clavulanate 875-125 mg tablet 1 tablet PO Q12H 10 Days Qty: 20 0RF ondansetron 4 mg tablet,disintegrating 4 mg PO Q6-8H PRN (Reason: nausea and vomiting) Qty: 7 0RF No Action metoclopramide HCl [Reglan] 10 mg tablet 10 mg PO Q6H Qty: 20 0RF (DME) Dexcom G7 Door Builder Misc See Rx Instructions .Route Qty: 1 0RF Rx Instructions: As directed (DME) Dexcom G7 Sensor Device See Rx Instructions .Route Qty: 1 0RF Rx Instructions: As directed Rezdiffra 80 mg tablet 80 mg PO DAILY Qty: 90 3RF omega 8-zcj-ouf-fish oil [Fish Oil] 1,000 mg (120 mg-180 mg) Capsule 1 cap PO DAILY albuterol sulfate [ProAir HFA] 90 mcg/actuation HFA aerosol inhaler 1 puff inhalation Q4H PRN (Reason: shortness of breath or wheezing) Qty: 18 1RF (DME) FreeStyle Jessica 3 Plus Sensor Device See Rx Instructions .Route Qty: 1 0RF Rx Instructions: As directed montelukast [Singulair] 10 mg tablet 10 mg PO DAILY Qty: 30 5RF atorvastatin 20 mg tablet 20 mg PO DAILY Qty: 90 1RF duloxetine 30 mg capsule,delayed release(DR/EC) 30 mg PO DAILY Qty: 30 3RF Mounjaro 7.5 mg/0.5 mL pen injector 7.5 mg subcut WEEKLY Qty: 2 2RF cyclobenzaprine 10 mg tablet 10 mg PO .hs PRN (Reason: muscle spasm) Qty: 90 0RF carvedilol 12.5 mg tablet See Rx Instructions .ROUTE .COMPLEX Qty: 180 1RF Dose Instruction: TAKE 1 TABLET BY MOUTH ONCE EVERY 12 HOURS Rx Instructions: TAKE 1 TABLET BY MOUTH ONCE EVERY 12 HOURS lisinopril 5 mg tablet 5 mg PO DAILY Qty: 90 1RF Synjardy 5-1,000 mg tablet 2 tablet PO DAILY Qty: 60 1RF eszopiclone [Lunesta] 2 mg tablet 2 mg PO QHS Qty: 30 0RF rabeprazole 20 mg tablet,delayed release (DR/EC) See Rx Instructions .ROUTE .COMPLEX Qty: 180 3RF Dose Instruction: TAKE 1 TABLET BY MOUTH TWICE A DAY Rx Instructions: TAKE 1 TABLET BY MOUTH TWICE A DAY Follow-up/Referrals: Jae Lewis MD [Primary Care Provider] - 3 Days Stand Alone Forms: Work/School Release IP Time of Disposition: 08:42
[2024-10-18 08:21] VITALS: BP 177/97; PULSE 79; RESP 16; TEMP 36.2; O2SAT 95
== END 2024-10-18 08:51 | disposition home or self-care (01) ==
PROVIDERS: Emergency Provider Nurse Practitioner Family; PCP Family Medicine
DX: J01.10 Acute frontal sinusitis, unspecified (principal); H66.001 Acute suppurative otitis media without spontaneous rupture of ear drum, right ear; R05.1 Acute cough; J45.909 Unspecified asthma, uncomplicated; E11.9 Type 2 diabetes mellitus without complications; Z79.85 Long-term (current) use of injectable non-insulin antidiabetic drugs; E78.2 Mixed hyperlipidemia; K75.81 Nonalcoholic steatohepatitis (NASH); E66.9 Obesity, unspecified; Z68.26 Body mass index [BMI] 26.0-26.9, adult
CPT/HCPCS: 99213; G0463

== ENCOUNTER 2024-12-07 13:42 | Outpatient (CLI) | payer OTHER, BC, SELFPAY ==
--- OUTSIDE RECORDS SUMMARY | 2024-12-07 13:45 | XMS_ITS | Encounter Summary ---
Author Organization [facility] Health Address [address] [facility] [place] [address] Care Team Providers Care Merchandise Flow Team Leader Name Role Phone Unavailable Primary Care Provider Unavailabl e Encounter Details Date Type Department Care Team (Late st Contact Info) Description 01/06/2018 Lab Requisition [facility] [address] [facility] [place] [phone] Jae Lewis MD [address] [place] [address] Social History Tobacco Use Types Packs/Day Years Used Date Smoking Tobacco: Never Smokeless Tobacco: Never Alcohol Use Standard Drinks/Week Comments No 0 (1 standard drink = 0.6 oz pur e alcohol) Comments Unknown Sex and Gender Information Value Date Recorded Sex Assigned at Not on file 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 Gender Identity Not on file Sexual Orientation Not on file documented as of this encounter Plan of Treatment Not on file documented as of this encounter Procedures Procedure Name Priority Date/Time Associated Diagnosis Comments DERMATOPATHOLOGY Routine 01/02/2018 12:0 0 AM CDT documented in this encounter Results * DERMATOPATHOLOGY (01/02/2018 12:00 AM CDT) Case Report Dermatopathology Report Case: [id number] Authorizing Provider: Jae Lewis MD Collected: 01/02/2018 12:00 AM Pathologist: Kell West MD Received: 01/06/2018 08:42 AM Specimen: Skin, left buttock 2:23 PM CDT DERMATOPATHOLOGY LABORATORY Final Diagnosis Specimen A. SKIN, left buttock: PSORIASIFORM DERMATITIS (L44.8) (see microscopic description and comment) 2:23 PM CDT DERMATOPATHOLOGY LABORATORY at 1423 CDT Clinical History Changing lesion. Check margins. 2:23 PM CDT DERMATOPATHOLOGY LABORATORY Gross Description Specimen A: Received is one formalin filled container labeled with the patient's name and designated left buttock. The specimen consists of a punch biopsy measuring [id number]. The margin is inked green. Jar 0. [...] malignancy in the sections examined. 2:23 PM T DERMATOPATHOLOGY LABORATORY Disclaimer An external and internal positive and negative controls are appropriate for the histochemical, immunohistochemical and immunofluorescence stain(s) in this case (if any), except where stated explicitly. The performance characteristics of the stain(s) cited in this report were developed and its performance characteristic determined by the Dermatopathology Laboratory at [facility]. These tests need not be, and therefore are not, approved by the [place] Food and Drug Administration. The tests are used for clinical purposes. Billing Codes Specimen Charges Stain Charges 15705 1 44225 1 2:23 PM CDT DERMATOPATHOLOGY LABORATORY Embedded Images 2:23 PM CDT DERMATOPATHOLOGY LABORATORY Pathology/Cytolog y TISSUE SPECIMEN FROM SKIN / Unknown 01/02/2018 01/06/2018 8:42 AM CDT us Jaeelisabeth Lewis MD LAB - PATHOLOGY/CYTOLOGY ORDE ESSENCE Final Result DERMATOPATHOLOGY LABORATORY [facility] - Department of Dermatology [address] [place] [address], 5th Floor Lab B [address] [phone] documented in this encounter Visit Diagnoses Not on filedocumented in this encounter
--- OUTSIDE RECORDS SUMMARY | 2024-12-07 13:45 | XMS_ITS | Clinical Summary ---
Author Organization [facility] Address [address] [facility] [place] [address] Care Team Providers Care Decision Support Manager Name Role Phone Unavailable Primary Care Provider Unavailabl e Source Comments [facility],non-owned Affiliates and Associated Physician Practices is amultiple site organization consisting of ambulatory clinics and hospital sitesin [place], [place], [place] and [place]. This disclosure is being madepursuant to the Care Everywhere program and may not contain all information available regarding this patient. 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 Gender Identity Not on file Sexual Orientation [...] SCREENING 1967 LIPID TESTING 1967 MAMMOGRAM 1967 HIV SCREENING 1982 HEPATITIS C SCREENING 04/25/1985 DTAP/TDAP/TD VACCINES (1 - Tdap) 1986 PNEUMOCOCCAL VACCINE 50+ (1 of 2 - PCV) 1986 PAP SMEAR 1988 HEPATITIS B VACCINE (2 of 3 - 19+ 3-dose series) 06/10/1999 05/13/1999, 05/13/1999, 05/13/1999 ZOSTER VACCINE (1 of 2) 2017 COVID-19 VACCINE (1 - 2023-2 5 season) 2024 DEPRESSION SCREENING 05/13/2024 INFLUENZA VACCINE (#1) 2025 HIB VACCINE Aged Out No longer [...] patient's age to complete this topic [place] [address] HEALTH CARE [facility] [employer] Member Subscriber Plan / Payer (Ef fective for All Dates) Name:Melissa Mg Relation to Subscriber:Self Name:MELISSA MG Payer ID:[id number] (NA) Type:PPO Address: [place] [phone] [employer] [facility] Member Subscriber Plan / Payer (Ef fective 2023-Present) Name:Melissa Mg Relation to Subscriber:Spouse Name:Kaz Mg Date of :1972 Address: [address] [place] [address] Payer ID:[id number] ([facility]) Type:HMO Address: [address] HEALTH CARE [facility]
--- OUTSIDE RECORDS SUMMARY | 2024-12-07 13:45 | XMS_ITS | Clinical Summary ---
Author Organization [facility] C Address [address] [facility] [place] [address] Care Team Providers Care Kaitara Taraka Name Role Phone Naomi Toure NP Primary Care Provider [phone] Varinder Benton MD Unavailable [phone] Allergies No known active allergies Medications [...] try instead at the tizanidine. - discontinue [place] collar. - After 6 weeks, patient may [...] (06/05/2021): Added automatically from request for surgery [id number] Cervical myelopathy with cervical radiculopathy 05/22/2021 Assessment & Plan (05/22/2021 2:11 PM SUPERVISOR TYPE PHOTOGRAPHY): Ms. Arriaga presents with symptoms of cervical [...] on file Legal Sex Female 7:15 PM SUPERVISOR TYPE PHOTOGRAPHY Gender Identity Female 05/15/2021 5:19 PM SUPERVISOR TYPE PHOTOGRAPHY Sexual Orientation Straight 05/15/2021 5: 20 PM SUPERVISOR TYPE PHOTOGRAPHY Occupation Industry Job Start Date Job End [...] A M CDT Height 177.8 cm (5' 10) 07/24/2021 8:41 AM CDT Body Mass Index 28.03 07/24/2021 8:41 AM CDT Plan of Treatment Health Maintenance Due Date Last Done Comments Breast Cancer Screening-Mammogram 1967 Colon Cancer Screening-Colonoscopy 1967 Hepatitis C Screening 1967 Regular Well Visit/Exam 18-64 1985 Zoster Vaccine (1 of 2) 2017 Depression Screening 05/22/2022 05/22/2021, 05/22/2021 Covid-19 Vaccine (2023-2 5 season) 2024 02/09/2021, 05/23/2020, 05/02/2020 Influenza Vaccine (#1) 2025 02/09/2021 DTaP/Tdap/Td Vaccine (2 - Td or Tdap) 12/27/2028 12/27/2018 Hepatitis B Screening Completed 05/13/1999 Pneumococcal vaccine <65 Aged Out No longer eligible based on patient's age to complete this topic Medical Devices Implanted Type Area Pressure Sealer And Tester Device Identifier Shelf Expiration Date Model / Serial / Lot Allograft Bone Putty 2.5cc 700-025 - [id number] Implanted:Qty: 1 on 07/24/2021 by Varinder Benton MD at [facility] N/A: Spine Cervical Cer[employer] Inc [id number] 02/10/2024 700-025 / / [id number] Cage Foundation 3d Cervical 14.0s24b0en 7 Deg - [id number] Implanted:Qty: 1 on 07/24/2021 by Varinder Benton MD at [facility] N/A: Spine Cervical Core Link [id number] 04/19/2026 [id number] / / [id number] Core Link [id number] Anodyne 12mm Level 1 Spine Cervical Anterior Plate Bone - [id number] Implanted:Qty: 1 on 07/24/2021 by Varinder Benton MD at [facility] N/A: Spine Cervical Core Link / / Core Link Anodyne 4mm 14mm Variable Angle Self Tap Spine Cervical Screw - [id number] Implanted:Qty: 4 on 07/24/2021 by Varinder Benton MD at [facility] N/A: Spine Cervical Core Link / / Insurance [facility] CHO[facility]US [facility] CHO[facility] PL[facility] Advance Directives For more information, please contact: [phone] * Full Code (Latest Code Status on File) Date Activated Date Inactivated Comments 07/24/2021 4:17 PM 07/25/2021 5:02 PM Care Teams Kaitara Taraka Relationship Specialty Start Date End Date Naomi Toure NP PCP - General Nurse Practitioner 04/27/21 Varinder Benton MD Consulting Physician Neurosurgery 07/24/21
--- OUTSIDE RECORDS SUMMARY | 2024-12-07 13:45 | XMS_ITS | Referral Summary ---
Author Organization [facility] C Address [address] [facility] [place] [address] Care Team Providers Care Site Safety Representative Name Role Phone Naomi Toure NP Primary Care Provider [phone] Varinder Benton MD Unavailable [phone] Allergies No known active allergies Medications [...] try instead at the tizanidine. - discontinue [place] collar. - After 6 weeks, patient may [...] (06/05/2021): Added automatically from request for surgery [id number] Cervical myelopathy with cervical radiculopathy 05/22/2021 Assessment & Plan (05/22/2021 2:11 PM HEALTH ECONOMIST): Ms. Arriaga presents with symptoms of cervical [...] on file Legal Sex Female 7:15 PM HEALTH ECONOMIST Gender Identity Female 05/15/2021 5:19 PM HEALTH ECONOMIST Sexual Orientation Straight 05/15/2021 5: 20 PM HEALTH ECONOMIST Occupation Industry Job Start Date Job End [...] on file Medical Devices Implanted Type Area Jig Grinder Device Identifier Shelf Expiration Date Model / Serial / Lot Allograft Bone Putty 2.5cc - [id number] Implanted:Qty: 1 on 07/24/2021 by Varinder Benton MD at [facility] N/A: Spine Cervical Cer[employer] Inc [id number] 02/10/2024- / / [id number] Cage Foundation 3d Cervical 14.1p06d1ib 7 Deg - [id number] Implanted:Qty: 1 on 07/24/2021 by Varinder Benton MD at [facility] N/A: Spine Cervical Core Link [id number] 04/19/2026 [id number] 708 / / [id number] Core Link Anodyne 12mm Level 1 Spine Cervical Anterior Plate Bone - [id number] Implanted:Qty: 1 on 07/24/2021 by Varinder Benton MD at [facility] N/A: Spine Cervical Core Link / / Core Link Anodyne 4mm 14mm Variable Angle Self Tap Spine Cervical Screw - [id number] Implanted:Qty: 4 on 07/24/2021 by Varinder Benton MD at [facility] N/A: Spine Cervical Core Link / / Insurance [facility] PLUS Advance Directives For more information, please contact: [phone] * Full Code (Latest Code Status on File) Date Activated Date Inactivated Comments 07/24/2021 4:17 PM 07/25/2021 5:02 PM Care Teams Site Safety Representative Relationship Specialty Start Date End Date Naomi Toure NP PCP - General Nurse Practitioner 04/27/21 Varinder Benton MD Consulting Physician Neurosurgery 07/24/21
[2024-12-07 19:12] LABS: Alanine Aminotransferase 66 U/L (6-35); Albumin Level 4.2 g/dL (3.5-5.1); Alkaline Phosphatase 72 U/L (38-126); Aspartate Amino Transferase 71 U/L (14-36); Bilirubin,Total 0.5 mg/dL (0.2-1.3); Total Protein 6.8 g/dL (6.3-8.2)
== END 2024-12-07 13:43 | disposition home or self-care (01) ==
LOC: ANHGOSHLAB 13:43
PROVIDERS: PCP Family Medicine; Visit Provider Nurse Practitioner
DX: K76.0 Fatty (change of) liver, not elsewhere classified (principal)
CPT/HCPCS: 36415; 80076

== ENCOUNTER 2024-12-23 13:38 | Outpatient (CLI) | payer OTHER, BC, SELFPAY ==
--- OUTSIDE RECORDS SUMMARY | 2024-12-23 13:43 | XMS_ITS | Clinical Summary ---
Author Organization [facility] [employer] Address [address] [facility] [place] [address] Care Team Providers Care Device Repair Technician Name Role Phone Unavailable Primary Care Provider Unavailabl e Source Comments [facility],non-owned Affiliates and Associated Physician Practices is amultiple site organization consisting of ambulatory clinics and hospital sitesin [place], [place], [place] and [place]. This disclosure is being madepursuant to the Care Everywhere program and may not contain all information available regarding this patient. Last updated 18.[facility] [employer] Active Problems Problem Noted Date Diagnosed [...] record) on 09/21/11, discussed w/Pt, seen by Sap Senior Developer and had an ultrasound that just showed [...] on file Legal Sex Female 5:39 PM DRILL INSTRUCTOR Gender Identity Not on file Sexual Orientation [...] patient's age to complete this topic [place] [address] [address] HEALTH CARE [facility] [employer] CARE Member Subscriber Plan / Payer (Ef fective for All Dates) Name:Melissa Mg Relation to Subscriber:Self Name:MELISSA MG Payer ID:[id number] (NA) Type:PPO Address: [place] [phone] [facility] [facility] Member Subscriber Plan / Payer (Ef fective 2023-Present) Name:Melissa Mg Relation to Subscriber:Spouse Name:Kaz Mg Date of :1970 Address: [address] [place] [address] Payer ID:[id number] ([facility]) Type:HMO Address: [address] HEALTH CARE [facility]
--- OUTSIDE RECORDS SUMMARY | 2024-12-23 13:43 | XMS_ITS | Encounter Summary ---
Author Organization [facility] Address [address] [place] [address] Care Team Providers Care Blood Splatter Analyst Name Role Phone Unavailable Primary Care Provider Unavailabl e Encounter Details Date Type Department Care Team (Late st Contact Info) Description 01/06/2018 Lab Requisition [facility] [address] [facility], [place] [id number] Jae Lewis MD [address] [place] [address] Social History Tobacco Use Types Packs/Day Years Used Date Smoking Tobacco: Never Smokeless Tobacco: Never Alcohol Use Standard Drinks/Week Comments No 0 (1 standard drink = 0.6 oz pur e alcohol) Comments Unknown Sex and Gender Information Value Date Recorded Sex Assigned at Not on file Legal Sex Female 5:39 PM WEB MARKETING INTERN Gender Identity Not on file Sexual Orientation Not on file documented as of this encounter Plan of Treatment Not on file documented as of this encounter Procedures Procedure Name Priority Date/Time Associated Diagnosis Comments DERMATOPATHOLOGY Routine 01/02/2018 12:0 0 AM CDT documented in this encounter Results * DERMATOPATHOLOGY (01/02/2018 12:00 AM CDT) Case Report Dermatopathology Report Case: [id number] Authorizing Provider: Jae Lewis MD Collected: 01/02/2018 [...] specimen consists of a punch biopsy measuring 7x1s7yf. The margin is inked green. Jar 0. [...] determined by the Dermatopathology Laboratory at [facility]. These tests need not be, and therefore are not, approved by the [place] Food and Drug Administration. The tests are used for clinical purposes. Billing Codes Specimen Charges Stain Charges 71023 1 79303 1 2:23 PM CDT DERMATOPATHOLOGY LABORATORY Embedded Images 2:23 PM CDT DERMATOPATHOLOGY LABORATORY Pathology/Cytolog y TISSUE SPECIMEN FROM SKIN / Unknown 01/02/2018 01/06/2018 8:42 AM CDT us Jaeelisabeth Lewis MD LAB - PATHOLOGY/CYTOLOGY ORDE ESSENCE Final Result DERMATOPATHOLOGY LABORATORY [facility] - Department of Dermatology [address] [place] [address], 5th Floor Lab [address] [phone] documented in this encounter Visit Diagnoses Not on filedocumented in this encounter
--- OUTSIDE RECORDS SUMMARY | 2024-12-23 13:43 | XMS_ITS | Clinical Summary ---
Author Organization [facility] C Address [address] [facility] [place] [address] Care Team Providers Care Performance Test Engineer Name Role Phone Naomi Toure NP Primary Care Provider [phone] Varinder Benton MD Unavailable [phone] Allergies No known active allergies Medications [...] (06/05/2021): Added automatically from request for surgery [id number] Cervical myelopathy with cervical radiculopathy 05/22/2021 Assessment & Plan (05/22/2021 2:11 PM ELECTRICIAN BUS): Ms. Arriaga presents with symptoms of cervical [...] on file Legal Sex Female 7:15 PM ELECTRICIAN BUS Gender Identity Female 05/15/2021 5:19 PM ELECTRICIAN BUS Sexual Orientation Straight 05/15/2021 5: 20 PM ELECTRICIAN BUS Occupation Industry Job Start Date Job End [...] this topic Medical Devices Implanted Type Area Silk Worker Device Identifier Shelf Expiration Date Model / Serial / Lot Allograft Bone Putty 2.5cc 700-025 - [id number] Implanted:Qty: 1 on 07/24/2021 by Varinder Benton MD at [facility] N/A: Spine Cervical Cerapedics Inc [id number] 02/10/2024 700-025 / / [id number] Cage Foundation 3d Cervical 14.2x89q4xs 7 Deg - [id number] Implanted:Qty: 1 on 07/24/2021 by Varinder Benton MD at [facility] N/A: Spine Cervical Core Link [id number] 04/19/2026 [id number] 708 / / [id number] Core Link [id number] Anodyne 12mm Level 1 Spine Cervical Anterior Plate Bone - [id number] Implanted:Qty: 1 on 07/24/2021 by Varinder Benton MD at [facility] N/A: Spine Cervical Core Link / / Core Link Anodyne 4mm 14mm Variable Angle Self Tap Spine Cervical Screw - [id number] Implanted:Qty: 4 on 07/24/2021 by Varinder Benton MD at [facility] N/A: Spine Cervical Core Link / / Insurance [facility] H[facility]PPO Address: [address] [address] [place] [address] [facility] HMO/PPO Address: [address] [address] [place] [address] [facility] HMO/PPO Address: [address] [address] [place] [address] [facility] CHOICE PLUS [facility] H[facility]/PPO Address: [facility] [address] [place] [address] [facility] HMO/PPO Address: [address] [address] [place] [address] [facility] CHOICE PLUS [facility] H[facility]/PPO Address: [facility] [address] [place] [address] Advance Directives For more information, please contact: [phone] * Full Code (Latest Code Status on File) Date Activated Date Inactivated Comments 07/24/2021 4:17 PM 07/25/2021 5:02 PM Care Teams Performance Test Engineer Relationship Specialty Start Date End Date Naomi Toure NP PCP - General Nurse Practitioner 04/27/21 Varinder Benton MD Consulting Physician Neurosurgery 07/24/21
[2024-12-24 11:41] LABS: INR 0.9; Prothrombin Time 12.1 Seconds (11.1-14.7)
[2024-12-24 11:57] LABS: Hepatitis B Surface Antigen Negative (Negative)
[2024-12-24 12:03] LABS: HAV RESULT Negative (Negative); Hepatitis B Core IgM Result Negative (Negative)
[2024-12-24 13:21] LABS: Creatine Kinase 143 U/L (30-135)
[2024-12-24 13:21] LABS: Iron 93 ug/dL (37-170)
[2024-12-24 13:31] LABS: Percent Iron Saturation 22 % (20-50)
[2024-12-24 14:02] LABS: Thyroid Stimulating Hormone Reflex 1.390 uIU/mL (0.465-4.68)
[2024-12-24 14:07] LABS: Ferritin 29.00 ng/mL (11.1-264)
[2024-12-24 14:51] LABS: Immunoglobulin G 768 mg/dL (700-1600)
== END 2024-12-23 13:39 | disposition home or self-care (01) ==
LOC: ANHGOSHLAB 13:39
PROVIDERS: PCP Family Medicine; Visit Provider Nurse Practitioner
DX: R74.8 Abnormal levels of other serum enzymes (principal); K75.81 Nonalcoholic steatohepatitis (NASH)
CPT/HCPCS: 36415; 80074; 82103; 82390; 82550; 82728; 82784; 83540; 83550; 84443; 85610; 86015; 86038; 86364; 86376; 86381

== ENCOUNTER 2025-03-11 07:40 | Outpatient (CLI) | payer OTHER, BC, SELFPAY ==
--- NOTE | ~2025-03-11 | NM_ITS ---
EXAM: NM gastric emptying study DATE: 03/11/2025 12:26 INDICATION: Epigastric abdominal pain. TECHNIQUE: A gastric emptying study was performed using the methodology of Ehsan HOANG, et al. J Nucl Med 2007; 48:568-572. The patient was given a meal consisting of 2 scrambled eggs labeled with 0.982 mCi Tc-99m sulfur colloid, 2 slices of toast, two packages of jam, and approximately 120 mL of water. Simultaneous anterior and posterior 1-min images of the abdomen were obtained with the patient supine at multiple time points over a total period of 4 hours. The geometric mean of anterior and posterior views was determined, and the percentage retention was calculated for each time point. COMPARISON: Gastric emptying study 07/09/2023 FINDINGS: Gastric retention of the radiotracer-labeled meal was 60%, 37%, and 5% at the 1-hour, 2-hour, and 4-hour time points, respectively. With this technique, apparent rapid gastric emptying is suggested by <30% gastric retention at 1 hour. Delayed gastric emptying is defined by gastric retention of >90% at 1 hour, >60% retention at 2 hours, or >10% retention at 4 hours. IMPRESSION: 1. Normal gastric emptying. Reviewed, dictated and finalized at location E. IMPRESSION: 1. Normal gastric emptying.
--- OUTSIDE RECORDS SUMMARY | 2025-03-11 07:48 | XMS_ITS | Clinical Summary ---
Author Organization [facility] C Address [address] [facility] [place] [address] Care Team Providers Care Advance Scout Name Role Phone Naomi Toure NP Primary Care Provider [phone] Varinder Benton MD Unavailable [phone] Allergies No known active allergies Medications [...] try instead at the tizanidine. - discontinue [place] collar. - After 6 weeks, patient may [...] (06/05/2021): Added automatically from request for surgery [id number] Cervical myelopathy with cervical radiculopathy 05/22/2021 Assessment & Plan (05/22/2021 2:11 PM CONE MACHINE FEEDER): Ms. Arriaga presents with symptoms of cervical [...] History Medical History Date Comments Diabetes mellitus Liver disease fatty liver Hypertension Hypercholesteremia Asthma [...] on file Legal Sex Female 7:15 PM CONE MACHINE FEEDER Gender Identity Female 05/15/2021 5:19 PM CONE MACHINE FEEDER Sexual Orientation Straight 05/15/2021 5: 20 PM CONE MACHINE FEEDER Occupation Industry Job Start Date Job End [...] on file Medical Devices Implanted Type Area Senior Principal Process Engineer Device Identifier Shelf Expiration Date Model / Serial / Lot Allograft Bone Putty 2.5cc 700-025 - [id number] Implanted:Qty: 1 on 07/24/2021 by Varinder Benton MD at [facility] N/A: Spine Cervical Cerapedics Inc [id number] 02/10/2024 700-025 / / [id number] Cage [facility] 3d Cervical 14.7m54t4cf 7 Deg - [id number] Implanted:Qty: 1 on 07/24/2021 by Varinder Benton MD at [facility] N/A: Spine Cervical Core Link [id number] 04/19/2026 [id number] 708 / / [id number] Core Link Anodyne 12mm Level 1 Spine Cervical Anterior Plate Bone - [id number] Implanted:Qty: 1 on 07/24/2021 by Varinder Benton MD at [facility] N/A: Spine Cervical Core Link / / Core Link Anodyne 4mm 14mm Variable Angle Self Tap Spine Cervical Screw - [id number] Implanted:Qty: 4 on 07/24/2021 by Varinder Benton MD at [facility] N/A: Spine Cervical Core Link / / Insurance [facility] CHOICE PLUS [address] [facility] Member Subscriber Plan / Payer ( fective 2012-Present) Name:Haley Arriagasherie Castorena Relation to Subscriber:Self Name:Melissa Arriaga Payer ID:[id number] (NAIC) Type:[facility] HMO/PPO Address: [place] [id number] [place] [address] [place] [address] CHOICE PLUS [facility] CHOICE PLUS Advance Directives For more information, please contact: [phone] * Full Code (Latest Code Status on File) Date Activated Date Inactivated Comments 07/24/2021 4:17 PM 07/25/2021 5:02 PM Care Teams Advance Scout Relationship Specialty Start Date End Date Naomi Toure NP PCP - General Nurse Practitioner 04/27/21 Varinder Benton MD Consulting Physician Neurosurgery 07/24/21
--- OUTSIDE RECORDS SUMMARY | 2025-03-11 07:48 | XMS_ITS | Encounter Summary ---
Author Organization [facility] Health Address [address] [facility] [place] [address] Care Team Providers Care Assistant Engineer Name Role Phone Unavailable Primary Care Provider Unavailabl e Encounter Details Date Type Department Care Team (Late st Contact Info) Description 01/06/2018 Lab Requisition [facility] [address] [facility], [place] [id number] Jae Lewis MD [address] [place] [address] Social History Tobacco Use Types Packs/Day Years Used Date Smoking Tobacco: Never Smokeless Tobacco: Never Alcohol Use Standard Drinks/Week Comments No 0 (1 standard drink = 0.6 oz pur e alcohol) Comments Unknown Sex and Gender Information Value Date Recorded Sex Assigned at Not on file Legal Sex Female 5:39 PM REGISTERED DENTAL ASSISTANT Gender Identity Not on file Sexual Orientation Not on file documented as of this encounter Plan of Treatment Not on file documented as of this encounter Procedures Procedure Name Priority Date/Time Associated Diagnosis Comments DERMATOPATHOLOGY Routine 01/02/2018 12:0 0 AM CDT documented in this encounter Results * DERMATOPATHOLOGY (01/02/2018 12:00 AM CDT) Case Report Dermatopathology Report Case: [id number] Authorizing Provider: Jae Lewis MD Collected: 01/02/2018 [...] specimen consists of a punch biopsy measuring 1i2p9pr. The margin is inked green. Jar 0. [...] characteristic determined by the Dermatopathology Laboratory at [facility]. These tests need not be, and therefore are not, approved by the [place] Food and Drug Administration. The tests are used for clinical purposes. Billing Codes Specimen Charges Stain Charges 18157 1 61256 1 2:23 PM CDT DERMATOPATHOLOGY LABORATORY Embedded Images 2:23 PM CDT DERMATOPATHOLOGY LABORATORY Pathology/Cytolog y TISSUE SPECIMEN FROM SKIN / Unknown 01/02/2018 01/06/2018 8:42 AM CDT us Jaeelisabeth Lewis MD LAB - PATHOLOGY/CYTOLOGY ORDE ESSENCE Final Result DERMATOPATHOLOGY LABORATORY [facility] - Department of Dermatology [address] [place] [address], 5th Floor Lab [address] [phone] documented in this encounter Visit Diagnoses Not on filedocumented in this encounter
--- OUTSIDE RECORDS SUMMARY | 2025-03-11 07:48 | XMS_ITS | Clinical Summary ---
Author Organization [facility] [email or web address] Address [address] [place] [address] Care Team Providers Care Applications Administrator Name Role Phone Unavailable Primary Care Provider Unavailabl e Source Comments [facility],non-owned Affiliates and Associated Physician Practices is amultiple site organization consisting of ambulatory clinics and hospital sitesin [place], [place], [place] and [place]. This disclosure is being madepursuant to the Care Everywhere program and may not contain all information available regarding this patient. Last updated 18.[facility] [email or web address] Active Problems Problem Noted Date Diagnosed Date [...] record) on 09/21/11, discussed w/Pt, seen by Pick Pack Worker and had an ultrasound that just showed a cyst Essential (primary) hypertension 06/04/2012 Type 2 diabetes mellitus without complications 0 07/05/2011 Overview (02/10/2025): Diagnosed 04/22 IMO 08/12/2024 IMO 02/10/2025 Immunizations Immunization Administration Dates Next Due HepB [...] on file Legal Sex Female 5:39 PM PEDIATRIC SPEECH LANGUAGE PATHOLOGIST Gender Identity Not on file Sexual Orientation [...] 05/13/1999 ZOSTER VACCINE (1 of 2) 2017 DEPRESSION SCREENING 05/13/2024 COVID-19 VACCINE (1 - 2023-2 5 season) 2025 INFLUENZA VACCINE (#1) 2025 HIB VACCINE Aged [...] patient's age to complete this topic [place] [place] [address] HEALTH CARE [facility] Member Subscriber Plan / Payer (Ef fective 2023-Present) Name:Melissa Mg Relation to Subscriber:Spouse Name:Kaz Mg Date of :1970 Address: [address] [place] [address] Payer ID:[id number] ([facility]) Type:HMO Address: [address] [facility]ALTH CARE [facility]
== END 2025-03-11 07:41 | disposition home or self-care (01) ==
PROVIDERS: PCP Family Medicine; Visit Provider Internal Medicine Gastroenterology
DX: R10.13 Epigastric pain (principal)
CPT/HCPCS: 78264; A9541